=== PATIENT | male | born 1990 | race Caucasian/White ===

== ENCOUNTER 2019-07-01 17:50 | Inpatient (IN) ==
[2019-07-01 18:39] LABS: Appearance Urine Turbid (Clear); Bacteria Urine Automated Negative (Negative); Bilirubin Urine Negative (Negative); Blood Urine Negative (Negative); Color Urine Yellow; Glucose Urine UA Negative (Negative); Ketones Urine Negative (Negative); Leukocyte Esterase Urine Negative (Negative); Nitrite Urine Negative (Negative); Protein Urine Negative (Negative); RBC Urine Automated 0-4 /hpf (0-4); Specific Gravity Urine 1.013 (1.000-1.030); Urobilinogen Urine Negative (Negative); pH Urine 8.5 (4.5-7.5)
[2019-07-01 18:58] LABS: Hematocrit (blood only) 40.8 % (42-52); Hemoglobin 14.4 g/dL (14.0-18.0); Mean Corpuscular Hemoglobin 31.6 pg (25-34); Mean Corpuscular Hgb Conc 35.3 g/dL (32-36); Mean Corpuscular Volume 89.5 fL (80-100); Mean Platelet Volume 9.3 fL (7.4-10.4); Platelet Count 330 K/uL (130-400); RDW Coefficient of Variation 12.4 % (11.5-14.5); RDW Standard Deviation 39.7 fL (36.4-46.3); Red Blood Count 4.56 M/uL (4.7-6.1); White Blood Count 8.88 K/uL (4.8-10.8)
[2019-07-01 19:06] LABS: Amphetamines+Metham, Urine Neg (Neg); Barbiturates, Urine Neg (Neg); Benzodiazepine, Urine Neg (Neg); Cocaine, Urine Neg (Neg); MDMA (Ecstacy), Urine Neg (Neg); Methadone, Urine Neg (Neg); Opiate, Urine Neg (Neg); Phencyclidine, Urine Neg (Neg)
[2019-07-01 19:20] LABS: Alanine Aminotransferase 19 U/L (12-78); Albumin Level 4.3 gm/dl (3.4-5.0); Aspartate Aminotransferase 9 U/L (15-37); Basophils # (auto) 0.01 K/uL (0-0.2); Basophils % (auto) 0.1 %; Blood Urea Nitrogen 12 mg/dl (7-18); Calcium 9.9 mg/dl (8.5-10.1); Carbon Dioxide 25 mmol/L (21-32); Chloride 112 mmol/L (98-107); Eosinophils # (auto) 0.04 K/uL (0-0.5); Eosinophils % (auto) 0.5 %; Est GFR (African American) 133.3; Glucose 101 mg/dl (70-99); Immature Granulocytes # (auto) 0.01 K/uL (0.00-0.02); Immature Granulocytes % (auto) 0.1 %; Lymphocytes % (auto) 23.6 %; Monocytes # (auto) 0.68 K/uL (0.11-0.59); Monocytes % (auto) 7.7 %; Neutrophils # (auto) 6.04 K/uL (1.4-6.5); Potassium 3.5 mmol/L (3.5-5.1); Sodium 140 mmol/L (136-145)
[2019-07-01 19:30] LABS: Acetaminophen < 2 ug/ml (10-30); Salicylate < 1.7 mg/dl (2.8-20)
[2019-07-01 19:31] LABS: Albumin Globulin Ratio 1.2 (0.9-2); Alkaline Phosphatase 74 U/L (45-117); Bilirubin,Total 1.3 mg/dl (0.2-1); Globulin 3.7 gm/dl (2.5-4.0)
--- NOTE | 2019-07-01 21:23 | Emergency Department Note ---
Entered by Tanya Neri acting as a scribe for Home Galvez MD ED Provider Note Name: EDOUARD Gonzalez MURTIFF Age: 29 Arrives Via: Ambulance Informant: Patient, EMS, ED nurses, CC: Mental Health Evaluation HPI: 29M arrives for a mental health evaluation. The patient states that he has been experiencing worsening depression and SI (no plan) in the last few weeks. He states that his sister called [facility]" today who sent him to the ED. The patient explains that he currently has "a lot going on" and has been dealing with family issues. He is currently not taking any psychiatric medications (last time was 2 years ago). The patient is willing have placement in a mental health facility for treatment. The patient has a history of admission 7 years ago to [facility] for depression and admits that he has not had any suicide attempts for a "long time". He denies any recent suicide attempts including cutting and overdose. Of note, he does not see a psychiatrist or therapist regularly and he does not have a family history of depression. Additionally he states that he has not had any recent falls or injuries. However, he does admit that he has intermittent loss of appetite. He denies back pain and chest pain. The patient offers no additional concerns at this time. ROS: See above HPI for pertinent positives & negatives. A total of 10 systems reviewed and were otherwise negative. Past Medical History:Mood disorder, depression, tobacco abuse disorder, see additional history below. Past Surgical History:Cornea transplant, hip surgery. Family History:No pertinent family history. Social History:Former cigarette smoker, chews tobacco, no drugs, social ETOH Home Medications:Acetazolamide, latanoprost, Lotemax, timolol maleate. Allergies:Latex Vitals: * BP: 93/77 * Pulse: 102 * Resp: 19 * Temp: 36.6 C * O2 Sat: 98 * Delivery: Room Air Physical Exam: GENERAL: Patient has depressed affect and in no acute distress. EYES: No scleral icterus, unremarkable pupils. ENT: Mucous membranes moist, no nasal congestion. NECK: No masses appreciated, nomeningismus, trachea is midline. RESPIRATORY: No dyspnea. Clear to auscultation and equal bilaterally. No wheeze, no rhonchi. CARDIOVASCULAR: Regular rate and rhythm.No murmurs, rubs, gallops appreciated. GASTROINTESTINAL: Abdomen soft, non-tender, no peritonitis.Bowel sounds positi ve.No masses appreciated. BACK: No midline tenderness, no CVA tenderness EXTREMITIES: Normal motion all extremities, no cyanosis, no edema. NEUROLOGIC: Alert and oriented, no acute motor or sensory deficits, no focal weakness, cranial nerves grossly intact. SKIN: No rash, no jaundice, no diaphoresis. PSYCH: Admits SI, admits depression. ED Course: Prior Medical Record, Triage/Nursing Notes, Medications, Allergies reviewed by Me Vital Signs: reviewed and remarkable for mild tachy, resolved Labs:Reviewed and remarkable for no significant abnormalities Reassessments/Times: * 1755: Past medical records reviewed. The patient was evaluated in room A08 A complete history and physical exam was performed. * 2015: Mental health will evaluate the patient. Blood pressure:Normal.No Referral necessary Disposition:Hospitalization - [address] [place] [address] Differentials:Differential: Mood Disorder, Overdose, Infectious, Electrolyte Abnormality, Cardiac, Hepatic, Endocrine, Toxicologic, Neurologic, amongst other pathologies Entertained. Medical Decision Makin yr old male history of depression arrives with worsening depression and now suicidal ideation over the last few days and weeks. 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 Currently no plan for suicide but thinking about it and severely depressed, no outpatient help and he has history of admission for depression. Patent willing inpatient. Medically cleared. Admitted to [address] [place] [address] Impression: Depression with Suicidal Ideation The scribe's documentation has been prepared under my direction and personally reviewed by me in its entirety. I confirm that the note above accurately reflects all work, treatment, procedures, and medical decision making performed by me. Home Galvez MD Impression & Plan Depression with suicidal ideation Past Med/Surg History Medical History (Updated 07/02/19 @ 02:21 by Home Galvez MD) Glaucoma (Chronic) No acute medical problems Surgical History (Updated 07/01/19 @ 21:58 by Tanya Neri) History of hip surgery Transplanted cornea Social History (Updated 07/01/19 @ 21:57 by Tanya Neri) Preferred Language: Uzbek Communication Ability: Effective Electric Installer Required: No Beliefs That Will Affect Care: None marital status: Single current occupational status: unemployed Feels Safe at Home: Yes Smoking Status: Former smoker Tobacco Type: smokeless tobacco ; Hx Alcohol Use: Yes Alcohol Intake Frequency: Holidays/Special Occasions Alcohol Intake Frequency Comment: last use was a few days ago Hx Substance Use: No Results & Data Vital Signs Vital Signs - 24 hr 07/01/19 17:56 07/01/19 21:42 Temperature 36.6 C Temperature Source Oral Pulse Rate 102 H Pulse Rate [Finger] 91 H Pulse Rhythm Regular Pulse Strength Normal Respiratory Rate 19 18 Respiratory Effort / Characteristics Non-Labored Non-Labored Respiratory Depth Normal Normal Respiratory Pattern Regular Regular Blood Pressure 93/77 L Blood Pressure [Left Arm] 118/73 Blood Pressure Mean 82 Blood Pressure Mean [Left Arm] 88 Blood Pressure Position Sitting Blood Pressure Position [Left Arm] Sitting Pulse Oximetry 98 97 Oxygen Delivery Method Room Air Room Air Sepsis Recent Fever Within 48 Hours No Sepsis Action Taken by Nursing No Action Required Laboratory Data Result diagrams: 07/01/19 18:40 07/01/19 18:40 Lab Results 07/01/19 07/01/19 07/01/19 Range/Units 18:20 18:20 18:40 WBC 8.88 (4.8-10.8) K/uL RBC 4.56 L (4.7-6.1) M/uL Hgb 14.4 (14.0-18.0) g/dL Hct 40.8 L (42-52) % MCV 89.5 (80-100) fL MCH 31.6 (25-34) pg MCHC 35.3 (32-36) g/dL RDW Std Deviation 39.7 (36.4-46.3) fL RDW Coeff of Dlemer 12.4 (11.5-14.5) % Plt Count 330 (130-400) K/uL MPV 9.3 (7.4-10.4) fL Immature Gran % (Auto) 0.1 % Neut % (Auto) 68.0 % Lymph % (Auto) 23.6 % Daniels % (Auto) 7.7 % Eos % (Auto) 0.5 % Baso % (Auto) 0.1 % Immature Gran # (Auto) 0.01 (0.00-0.02) K/uL Neut # (Auto) 6.04 (1.4-6.5) K/uL Lymph # (Auto) 2.10 (1.2-3.4) K/uL [place] # (Auto) 0.68 H (0.11-0.59) K/uL Eos # (Auto) 0.04 (0-0.5) K/uL Baso # (Auto) 0.01 (0-0.2) K/uL Sodium (136-145) mmol/L Potassium (3.5-5.1) mmol/L Chloride (98-107) mmol/L Carbon Dioxide (21-32) mmol/L Anion Gap (3-11) BUN (7-18) mg/dl Creatinine (0.6-1.4) mg/dl Est Cr Clr Drug Dosing Est GFR ( Amer) Est GFR (Non-Af Amer) BUN/Creatinine Ratio (10-20) Glucose (70-99) mg/dl Calcium (8.5-10.1) mg/dl Total Bilirubin (0.2-1) mg/dl AST (15-37) U/L ALT (12-78) U/L Alkaline Phosphatase (45-117) U/L Total Protein (6.4-8.2) gm/dl Albumin (3.4-5.0) gm/dl Globulin (2.5-4.0) gm/dl Albumin/Globulin Ratio (0.9-2) TSH (0.300-4.500) uIu/ml Urine Color Yellow Urine Appearance Turbid A (Clear) Urine pH 8.5 H (4.5-7.5) Ur Specific [place] 1.013 (1.000-1.030) Urine Protein Negative (Negative) Urine Glucose (UA) Negative (Negative) Urine Ketones Negative (Negative) Urine Blood Negative (Negative) Urine Nitrite Negative (Negative) Urine Bilirubin Negative (Negative) Urine Urobilinogen Negative (Negative) Ur Leukocyte Esterase Negative (Negative) Urine WBC (Auto) 1-5 (0-5) /hpf Urine RBC (Auto) 0-4 (0-4) /hpf U Hyaline Cast (Auto) 1-5 (0-5) /lpf U Epithel Cells (Auto) 5-10 H (0-5) /lpf Urine Bacteria (Auto) Negative (Negative) Salicylates (2.8-20) mg/dl Urine Opiates Screen Neg (Neg) Ur Methadone, Qual Neg (Neg) Acetaminophen (10-30) ug/ml Urine Barbiturates Neg (Neg) Ur Phencyclidine (PCP) Neg (Neg) U Amphetamin/Meth Scrn Neg (Neg) MDMA (Ecstasy) Screen Neg (Neg) U Benzodiazepines Scrn Neg (Neg) Ur Cocaine Metabolite Neg (Neg) U Marijuana (THC) Screen Neg (Neg) Ethyl Alcohol mg/dL (0-3) mg/dl 07/01/19 07/01/19 07/01/19 Range/Units 18:40 18:40 18:40 WBC (4.8-10.8) K/uL RBC (4.7-6.1) M/uL Hgb (14.0-18.0) g/dL Hct (42-52) % MCV (80-100) fL MCH (25-34) pg MCHC (32-36) g/dL RDW Std Deviation (36.4-46.3) fL RDW Coeff of [place] (11.5-14.5) % Plt Count (130-400) K/uL MPV (7.4-10.4) fL Immature Gran % (Auto) % Neut % (Auto) % Lymph % (Auto) % Daniels % (Auto) % Eos % (Auto) % Baso % (Auto) % Immature Gran # (Auto) (0.00-0.02) K/uL Neut # (Auto) (1.4-6.5) K/uL Lymph # (Auto) (1.2-3.4) K/uL Daniels # (Auto) (0.11-0.59) K/uL Eos # (Auto) (0-0.5) K/uL Baso # (Auto) (0-0.2) K/uL Sodium 140 (136-145) mmol/L Potassium 3.5 (3.5-5.1) mmol/L Chloride 112 H (98-107) mmol/L Carbon Dioxide 25 (21-32) mmol/L Anion Gap 3.0 (3-11) BUN 12 (7-18) mg/dl Creatinine 0.90 (0.6-1.4) mg/dl Est Cr Clr Drug Dosing Not Reportable Est GFR ( Amer) 133.3 Est GFR (Non-Af Amer) 115.0 BUN/Creatinine Ratio 13.0 (10-20) Glucose 101 H (70-99) mg/dl Calcium 9.9 (8.5-10.1) mg/dl Total Bilirubin 1.3 H (0.2-1) mg/dl AST 9 L (15-37) U/L ALT 19 (12-78) U/L Alkaline Phosphatase 74 (45-117) U/L Total Protein 8.0 (6.4-8.2) gm/dl Albumin 4.3 (3.4-5.0) gm/dl Globulin 3.7 (2.5-4.0) gm/dl Albumin/Globulin Ratio 1.2 (0.9-2) TSH 1.240 (0.300-4.500) uIu/ml Urine Color Urine Appearance (Clear) Urine pH (4.5-7.5) Ur Specific [place] (1.000-1.030) Urine Protein (Negative) Urine Glucose (UA) (Negative) Urine Ketones (Negative) Urine Blood (Negative) Urine Nitrite (Negative) Urine Bilirubin (Negative) Urine Urobilinogen (Negative) Ur Leukocyte Esterase (Negative) Urine WBC (Auto) (0-5) /hpf Urine RBC (Auto) (0-4) /hpf U Hyaline Cast (Auto) (0-5) /lpf U Epithel Cells (Auto) (0-5) /lpf Urine Bacteria (Auto) (Negative) Salicylates < 1.7 L (2.8-20) mg/dl Urine Opiates Screen (Neg) Ur Methadone, Qual (Neg) Acetaminophen < 2 L (10-30) ug/ml Urine Barbiturates (Neg) Ur Phencyclidine (PCP) (Neg) U Amphetamin/Meth Scrn (Neg) MDMA (Ecstasy) Screen (Neg) U Benzodiazepines Scrn (Neg) Ur Cocaine Metabolite (Neg) U Marijuana (THC) Screen (Neg) Ethyl Alcohol mg/dL < 3.0 (0-3) mg/dl Discharge Plan Visit Data *Final* Discharge Date/Time: 07/01/19 22:24 Chief Complaint: Mental Health Evaluation ED Provider: Home Galvez Discharge Problem: Depression with suicidal ideation Patient Disposition: Still a Patient Discharge Instructions Interventions: ED Discharge Assessment Last Done: 07/01/19 22:24 The scribe's documentation has been prepared under my direction and personally reviewed by me in its entirety. I confirm that the note above accurately reflects all work, treatment, procedures, and medical decision making performed by me.
[2019-07-01] MEDS ORDERED: SODIUM CHLORIDE 0.65% NA SOLN 45 ML (OCEAN) PRN (23:06)
[2019-07-01] MEDS ORDERED: ALUMINUM/MAGNESIUM SUSP 30 ML UDC PO PRN (23:06)
[2019-07-01] MEDS ORDERED: MAGNESIUM HYDROXIDE SUSP 30 ML UDC PO PRN (23:06)
[2019-07-01] MEDS ORDERED: ACETAMINOPHEN 325 MG TAB PO PRN (23:06)
[2019-07-01] MEDS ORDERED: BISMUTH SUBSALICYLATE PER ML OMNICELL CHARGE PO PRN (23:06)
[2019-07-01] MEDS: LATANOPROST 0.005% OP SOLN 2.5 ML BTL OP SCH (23:45)
[2019-07-01] MEDS: TIMOLOL MALEATE 0.25% OP SOLN 5 ML BTL OP SCH (23:45)
[2019-07-01] MEDS: LOTEMAX OPL SCH (23:45)
[2019-07-02] MEDS: TIMOLOL MALEATE 0.25% OP SOLN 5 ML BTL OP SCH ×2 (07:41→21:59)
[2019-07-02] MEDS: acetaZOLAMIDE 250 MG TAB PO SCH (08:41)
[2019-07-02] MEDS: NICOTINE 14 MG/24 HR PATCH TD SCH (08:44)
[2019-07-02] MEDS ORDERED: acetaZOLAMIDE 500 MG CAPCR PO SCH (09:00)
[2019-07-02] MEDS: NICOTINE POLACRILEX 2 MG GUM MT PRN ×3 (09:14→19:25)
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
[2019-07-02] MEDS: ARIPiprazole 5 MG TAB PO SCH (11:57)
[2019-07-02] MEDS: LOTEMAX OPL SCH (21:59)
[2019-07-02] MEDS: LATANOPROST 0.005% OP SOLN 2.5 ML BTL OP SCH (22:00)
[2019-07-03] MEDS: acetaZOLAMIDE 250 MG TAB PO SCH (08:54)
[2019-07-03] MEDS: ARIPiprazole 5 MG TAB PO SCH (08:54)
[2019-07-03] MEDS: TIMOLOL MALEATE 0.25% OP SOLN 5 ML BTL OP SCH ×2 (08:54→22:02)
[2019-07-03] MEDS: NICOTINE 14 MG/24 HR PATCH TD SCH (08:58)
[2019-07-03] MEDS: NICOTINE POLACRILEX 2 MG GUM MT PRN ×3 (12:15→19:18)
[2019-07-03] MEDS ORDERED: ARIPiprazole 5 MG TAB PO ONE (12:27)
--- NOTE | 2019-07-03 14:03 | Psychiatric Progress Note ---
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 He does have a history of suicide attempt and, particularly in the setting of recent losses and psychosocial stress, is felt to be at increased risk of self-harm without the support of inpatient psychiatric hospitalization at present. (1) Depression with suicidal ideation: 07/02/2019 -Patient admitted on a voluntary status to the behavioral health unit. Will be maintained on regular safety checks and encouraged to participate in therapeutic milieu as appropriate -Will restart Abilify at 2.5 mg p.o. daily which has previously been helpful and well-tolerated. Common risks and benefits reviewed with patient including metabolic and motor risks which specifically included discussion about potential tardive dyskinesia as a long-term consequence of this class of medication and he verbalized understanding and consented to the treatment -Patient will require baseline fasting labs prior to discharge for monitoring on atypical antipsychotic -We will facilitate outpatient follow-up prior to discharge to include psychiatric medication management and psychotherapy 07/03 -No interval mood improvement yet apparent -Increase Abilify to 5 mg daily -We will order fasting labs for Thursday morning for baseline on atypical antipsychotic -He was encouraged to be open in his communication with sister at family meeting today (2) Glaucoma: 07/02/2019 -He will continue on his home regimen for his glaucoma Inventory Assets Strengths: Help seeking Needs: Provision of safety Risk Factors Assessment 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)) Stable Relationships: No Interval History Chief Complaint " I got angry". Review of Systems Notes Denies restlessness Sleep Information Total Hours of Sleep: 5.25 Meal Information Percent Meal Consumed - Breakfast: 50 Percent Meal Consumed - Lunch: 100 Percent Meal Consumed - Dinner: 100 Subjective Subjective Patient was seen & assessed and interval progress reviewed with treatment team. Staff describe some rather juvenile behaviors overnight. Seemingly enjoying attention from another inpatient precipitating some mildly confrontational behavior with staff such as sitting by the door to the unit and refusing to move, checking doors on the exterior of the unit, and punching a door. When queried about nidus for anger he reports that he seems mostly angry at his sister with whom he has been living and tells me that his girlfriend has indicated to him that his sister will probably try to steal his disability check and kick him out of the house. He denies evidence of this presently. He is scheduled for a family meeting with his sister today. Complains of poor sleep overnight but did not request or receive hydroxyzine prn and was made aware that this is available to him if needed. He denies any problems or side effects in restarting the Abilify so far. He denies any improvement in hopelessness. Physical Exam Psychiatric More drowsy and guarded this morning Apperance: + disheveled Eye Contact: + poor eye contact Motor Behavior: + psychomotor retardation Speech is clear but less spontaneous Affect: + depressed affect Mood: + depressed mood and + angry mood Thought Process: + perseveration and + concrete thought process Thought Content: + hopelessness Suicidal Thoughts: denies suicidal plan; + reports suicidal thoughts Homicidal Thoughts: denies homicidal thoughts Hallucinations: no auditory hallucinations and no visual hallucinations Estimated Intelligence: + below average estimated intelligence Insight: + limited insight Judgement: + limited judgement Vital Signs (Past 24 Hours) Last Vital Signs Temp 36.9 C 07/03/19 07:04 Pulse 80 07/03/19 07:05 Resp 18 07/03/19 07:04 BP 102/61 07/03/19 07:05 Pulse Ox 98 07/01/19 22:24 Results & Data Current Inpatient Medications Current Inpatient Medications: Current Inpatient Medications Acetaminophen (Tylenol) 650 mg PO Q4H PRN PRN Reason: Headache or Minor Fever Stop: 07/31/19 23:05 Acetazolamide (Diamox) 250 mg PO DAILY [facility] Stop: 08/01/19 08:59 Last Admin: 07/03/19 08:54 Dose: 250 mg Documented by: Al Hydrox/Mg Hydrox/Simethicone (Maalox) 30 ml PO Q4H PRN PRN Reason: GI Upset Stop: 07/31/19 23:05 Aripiprazole (Abilify) 5 mg PO QAM [facility] Stop: 08/03/19 08:59 Bismuth Subsalicylate (Kaopectate) 15 ml PO PRN PRN PRN Reason: Loose Stool Stop: 07/31/19 23:05 Hydroxyzine HCl (Vistaril) 50 mg PO HSZ PRN PRN Reason: Insomnia Stop: 07/31/19 23:05 Hydroxyzine HCl (Vistaril) 25 mg PO Q4H PRN PRN Reason: Anxiety Stop: 07/31/19 23:05 Latanoprost (Xalatan Oph) 1 drops OP HS [facility] Stop: 08/01/19 21:59 Last Admin: 07/02/19 22:00 Dose: 1 drops Documented by: Magnesium Hydroxide (Milk Of Magnesia) 30 ml PO DAILY PRN PRN Reason: Constipation Stop: 07/31/19 23:05 Miscellaneous (Remove Nicoderm Patch) 1 ea N/A DAILY@0859 [facility] Stop: 08/01/19 08:58 Last Admin: 07/03/19 08:58 Dose: Not Given Documented by: Nicotine (Nicoderm Cq) 14 mg TD QAM [facility] Stop: 08/01/19 08:59 Last Admin: 07/03/19 08:58 Dose: Not Given Documented by: Nicotine Polacrilex (Nicorette 2mg) 1 piece MT PRN PRN PRN Reason: Nicotine Withdrawal Stop: 07/31/19 23:05 Last Admin: 07/03/19 12:15 Dose: 1 piece Documented by: Lotemax~Non- Formulary Patient's Own Med 1 ea OPL HS [facility] Stop: 08/01/19 21:59 Last Admin: 07/02/19 21:59 Dose: 1 drops Documented by: Sodium Chloride ([place] Nasal) 1 - 2 sprays NA PRN PRN PRN Reason: Nasal Dryness/Congestion Stop: 07/31/19 23:05 Timolol Maleate (Timoptic 0.25% Oph) 1 drops OP BID [facility] Stop: 08/01/19 08:59 Last Admin: 07/03/19 08:54 Dose: 1 drops Documented by: Mental Health & Subst Abuse Tx Therapist Name of Therapist: None Finish Inspector Name of Finish Inspector: None Post Discharge Appointments Contact Information Discharge Discharge Address: [address] [place] [id number]
[2019-07-03] MEDS: LOTEMAX OPL SCH (22:02)
[2019-07-03] MEDS: LATANOPROST 0.005% OP SOLN 2.5 ML BTL OP SCH (22:03)
[2019-07-04] MEDS: NICOTINE 14 MG/24 HR PATCH TD SCH (08:02)
[2019-07-04] MEDS: TIMOLOL MALEATE 0.25% OP SOLN 5 ML BTL OP SCH (08:04)
[2019-07-04 08:22] LABS: Glucose Fasting 97 mg/dl (70-99)
[2019-07-04 08:28] LABS: Chol HDL Ratio 3; Cholesterol 133 mg/dl (0-200); HDL Cholesterol 48 mg/dl; LDL Cholesterol Calculated 73 mg/dl; Triglycerides 59 mg/dl (0-150); VLDL Cholesterol 12 mg/dl
[2019-07-04] MEDS: acetaZOLAMIDE 250 MG TAB PO SCH (08:37)
[2019-07-04] MEDS ORDERED: ARIPiprazole 5 MG TAB PO SCH (09:00)
--- NOTE | 2019-07-04 11:55 | Discharge Summary ---
Date of Service July 04, 2019 History of Present Illness Patient admitted on a voluntary status through the ER last evening. He presented complaining of worsening depression and suicidal ideation without a specific plan for the past few weeks and felt unable to contract for safety outside of the hospital. His sister called the crisis line who sent him to the ER. He described multiple family stressors. He noted absence of active medication management or psychotherapy services. He was medically cleared for admission to the behavioral health unit. Admission labs unremarkable. Tox screen negative. On interview patient describes recent losses where his uncle on 06/30/2019 and his grandmother last March and he was close to both of these individuals. He feels that his father does not care if he lives or dies. He describes feeling lonely with his sadness and that he burdens people when he tries to talk to them. Reports significantly declining mood for the past several weeks with thoughts of being better off but has not formulated a specific plan for self-harm. He endorses crying spells, variable appetite and sleep patterns, variable irritability, but denies self injury or other particular impulsive behaviors. He describes some mild anxiety but denies symptoms that would be consistent with longstanding anxiety disorder, panic, or PTSD. Reviewed prior diagnosis of bipolar disorder however he denies recollection of discrete hypomanic or manic episodes and denies any recent symptoms that would suggest mixed or manic state. He denies hallucinations. He recalls a positive response to Abilify for depression in the past and believes it was well tolerated. He last took this in 2016 reports he stopped taking it because he was feeling better. His recall antidepressants were not of much benefit to him in the more distant past. Physical Exam Psychiatric Orientation: alert, oriented x 3 and cooperative Apperance: appropriately dressed, appropriately groomed (long aranda, but well- groomed) and appeared stated age Eye Contact: good eye contact Motor Behavior: steady gait and station and no abnormal motor movements Speech: normal rate/rhythm/volume of speech (mostly nonspontaneous, brief responses - but polite tone) Affect: + blunted affect Mood: + anxious mood ("a bit nervious, worried" - anticipatory anxious related to discharge) Thought Process: goal directed thought process, clear/coherent thought process and + concrete thought process Thought Content: reality based without delusions; no hopelessness and no worthlessness Suicidal Thoughts: denies suicidal thoughts, denies suicidal plan and denies suicidal intent Homicidal Thoughts: denies homicidal thoughts Hallucinations: no auditory hallucinations and no visual hallucinations Cognition: attention grossly intact and language grossly intact Estimated Intelligence: + below average estimated intelligence Insight: + fair insight Judgement: + fair judgement Vital Signs (Past 24 Hours) Last Vital Signs Temp 36.7 C 07/04/19 06:45 Pulse 91 H 07/04/19 06:45 Resp 16 07/04/19 06:45 BP 108/72 07/04/19 06:45 Pulse Ox 98 07/01/19 22:24 Principal Diagnosis - Major depressive disorder, recurrent, severe, without psychotic features - Glaucoma Psychiatric Data 29-year-old male admitted voluntarily for inpatient psychiatric hospitalization on 07/01/2019. 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 Patient presented with worsening depression over the past several weeks, and was verbalizing suicidal ideation without a specific plan. Patient felt he was unable to contract for safety outside of the inpatient hospital setting due to persistent family stressors and limited professional outpatient support. Patient also admitted to recent significant losses, including his grandmother in March 2019 and an uncle on 06/30/2019. Patient reported a previous positive response to aripiprazole for treatment of depressive symptoms. He also recalled that antidepressant medication trials had not generally been beneficial for him. During his hospitalization, patient was resumed on aripiprazole which was titrated to a dose of 5 mg daily. Patient participated in group and recreational programming over the course of his admission. He also involved a cousin, with whom he reports a close relationship, and a family meeting to discuss discharge and safety planning. Patient admitted a large priority for inpatient admission was to obtain professional outpatient psychiatric supports. [facility], and also was set up with therapy and medication management appointments. At time of discharge consideration, patient is denying continued suicidal ideation and reports feeling comfortable with current discharge plan. Aripiprazole was called to his pharmacy of choice, and a co-pay of $0 was reported. Patient did receive fasting glucose and lipid panel, all values within normal limits. Based on review of patient's case and their current presentation, risk of harm to self or others is no longer perceived to be acute. Management of symptoms on an outpatient basis seems the most appropriate and least restrictive setting. Pt seems appropriate for discharge with recommendation for consistent follow-up with outpatient psychiat patricia prescriber, therapist, and embedded case manager. Pt verbalized understanding of discharge plan reviewed and is agreeable with plan to be discharged home today. Day of Discharge Assessment Patient's case was reviewed and discussed during treatment team. Staff reports the patient continues to verbalize an elevated mood compared to admission. He is continued to deny suicidal ideation. Patient continues to report requests for therapy and medication management appointments prior to discharge. It is reported that patient participated in a family meeting with his cousin over the weekend. Patient was seen today to assess readiness for discharge. Patient does feel as though he was able to demonstrate ability to "open up more" about his thoughts and emotions during this admission. Patient states he found it helpful being able to speak openly with his cousin during a family meeting, and has found one-to-one meetings with counselors beneficial as well. Patient continues to verbalize desire for outpatient medication management and therapy prior to discharge. He does denies suicidal ideation, or significant mood related concerns. Patient does admit that he is "a little nervous" about the idea of discharge, but is optimistic that increased outpatient support will be beneficial. Fasting lab results were reviewed, all values within normal limits. At this time, patient is reporting desire for discharge today once aftercare arrangements have been made. Patient was able to verbalize aspects of a safety plan to this provider, and continued to make statements indicating he is future oriented. He denies additional needs or concerns, or unmet goals of treatment during this admission. ROS: Constitutional: denied Cardiovascular: denied Respiratory: denied Gastrointestinal: denied Neurological: denied Psychiatric: denies symptoms other than stated above Total of at least 10 systems reviewed, pertinent positives as above and in HPI. Transition of Care Transition Of Care Record: was reviewed with the patient Advance Directives Advance Directives Information Provided: Yes Advance Directives: No Mental Health Advance Directive: No Advance Directives on File: No Living Will: No Power of Anvilsmith: No Advance Directives Reason:: Declines as Mental Health Visit. Risk Factors Assessment Presenting risk factors reviewed on discharge. Precipitating stressors mitigated by: admission for inpatient psychiatric observation and treatment, initiation of medications to target presenting symptoms, attendance of therapeutic treatment groups, development of healthy and effective coping strategies, involvement of outpatient supports, completion of a safety plan, confirmation of guns and weapons being secured, discussion regarding substance abuse and effects on mental health diagnoses, treatment of medical conditions and education on diagnoses. Pt has demonstrated improvement in condition with regard to improvement in mood, resolution of SI, reinitiation of psychotropic medications, and involvement of family in discharge and safety planning. At this time, patient is requesting discharge and is no longer considered to be at acute risk of harm to himself or others. Pt will be discharged with recommendation for ongoing outpatient psychiatric treatment. 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)) Stable Relationships: No Tobacco Cessation at Discharge Tobacco Cessation Medication Prescribed at Discharge: Offered & Pt Refused Total Time Total Time Spent: Greater Than 30 Minutes Total Time Includes: Examination of the patient, Discharge Planning, Medication Reconciliation and Communication with other providers Discharge Data Lab Results 07/01/19 07/01/19 07/01/19 18:20 18:20 18:40 WBC 8.88 RBC 4.56 L Hgb 14.4 Hct 40.8 L MCV 89.5 MCH 31.6 MCHC 35.3 RDW Std Deviation 39.7 RDW Coeff of Delmer 12.4 Plt Count 330 MPV 9.3 Immature Gran % (Auto) 0.1 Neut % (Auto) 68.0 Lymph % (Auto) 23.6 Sharp % (Auto) 7.7 Eos % (Auto) 0.5 Baso % (Auto) 0.1 Immature Gran # (Auto) 0.01 Neut # (Auto) 6.04 Lymph # (Auto) 2.10 Sharp # (Auto) 0.68 H Eos # (Auto) 0.04 Baso # (Auto) 0.01 Sodium Potassium Chloride Carbon Dioxide Anion Gap BUN Creatinine Est Cr Clr Drug Dosing Est GFR ( Amer) Est GFR (Non-Af Amer) BUN/Creatinine Ratio Glucose Fasting Glucose Calcium Total Bilirubin AST ALT Alkaline Phosphatase Total Protein Albumin Globulin Albumin/Globulin Ratio Triglycerides Cholesterol LDL Cholesterol, Calc VLDL Cholesterol, Calc HDL Cholesterol Cholesterol/HDL Ratio TSH Urine Color Yellow Urine Appearance Turbid A Urine pH 8.5 H Ur Specific Council 1.013 Urine Protein Negative Urine Glucose (UA) Negative Urine Ketones Negative Urine Blood Negative Urine Nitrite Negative Urine Bilirubin Negative Urine Urobilinogen Negative Ur Leukocyte Esterase Negative Urine WBC (Auto) 1-5 Urine RBC (Auto) 0-4 U Hyaline Cast (Auto) 1-5 U Epithel Cells (Auto) 5-10 H Urine Bacteria (Auto) Negative Salicylates Urine Opiates Screen Neg Ur Methadone, Qual Neg Acetaminophen Urine Barbiturates Neg Ur Phencyclidine (PCP) Neg U Amphetamin/Meth Scrn Neg MDMA (Ecstasy) Screen Neg U Benzodiazepines Scrn Neg Ur Cocaine Metabolite Neg U Marijuana (THC) Screen Neg Ethyl Alcohol mg/dL 07/01/19 07/01/19 07/01/19 18:40 18:40 18:40 WBC RBC Hgb Hct MCV MCH MCHC RDW Std Deviation RDW Coeff of Delmer Plt Count MPV Immature Gran % (Auto) Neut % (Auto) Lymph % (Auto) Sharp % (Auto) Eos % (Auto) Baso % (Auto) Immature Gran # (Auto) Neut # (Auto) Lymph # (Auto) Sharp # (Auto) Eos # (Auto) Baso # (Auto) Sodium 140 Potassium 3.5 Chloride 112 H Carbon Dioxide 25 Anion Gap 3.0 BUN 12 Creatinine 0.90 Est Cr Clr Drug Dosing Not Reportable Est GFR ( Amer) 133.3 Est GFR (Non-Af Amer) 115.0 BUN/Creatinine Ratio 13.0 Glucose 101 H Fasting Glucose Calcium 9.9 Total Bilirubin 1.3 H AST 9 L ALT 19 Alkaline Phosphatase 74 Total Protein 8.0 Albumin 4.3 Globulin 3.7 Albumin/Globulin Ratio 1.2 Triglycerides Cholesterol LDL Cholesterol, Calc VLDL Cholesterol, Calc HDL Cholesterol Cholesterol/HDL Ratio TSH 1.240 Urine Color Urine Appearance Urine pH Ur Specific Council Urine Protein Urine Glucose (UA) Urine Ketones Urine Blood Urine Nitrite Urine Bilirubin Urine Urobilinogen Ur Leukocyte Esterase Urine WBC (Auto) Urine RBC (Auto) U Hyaline Cast (Auto) U Epithel Cells (Auto) Urine Bacteria (Auto) Salicylates < 1.7 L Urine Opiates Screen Ur Methadone, Qual Acetaminophen < 2 L Urine Barbiturates Ur Phencyclidine (PCP) U Amphetamin/Meth Scrn MDMA (Ecstasy) Screen U Benzodiazepines Scrn Ur Cocaine Metabolite U Marijuana (THC) Screen Ethyl Alcohol mg/dL < 3.0 07/04/19 07:51 WBC RBC Hgb Hct MCV MCH MCHC RDW Std Deviation RDW Coeff of Delmer Plt Count MPV Immature Gran % (Auto) Neut % (Auto) Lymph % (Auto) Sharp % (Auto) Eos % (Auto) Baso % (Auto) Immature Gran # (Auto) Neut # (Auto) Lymph # (Auto) Sharp # (Auto) Eos # (Auto) Baso # (Auto) Sodium Potassium Chloride Carbon Dioxide Anion Gap BUN Creatinine Est Cr Clr Drug Dosing Est GFR ( Amer) Est GFR (Non-Af Amer) BUN/Creatinine Ratio Glucose Fasting Glucose 97 Calcium Total Bilirubin AST ALT Alkaline Phosphatase Total Protein Albumin Globulin Albumin/Globulin Ratio Triglycerides 59 Cholesterol 133 LDL Cholesterol, Calc 73 VLDL Cholesterol, Calc 12 HDL Cholesterol 48 Cholesterol/HDL Ratio 3 TSH Urine Color Urine Appearance Urine pH Ur Specific Council Urine Protein Urine Glucose (UA) Urine Ketones Urine Blood Urine Nitrite Urine Bilirubin Urine Urobilinogen Ur Leukocyte Esterase Urine WBC (Auto) Urine RBC (Auto) U Hyaline Cast (Auto) U Epithel Cells (Auto) Urine Bacteria (Auto) Salicylates Urine Opiates Screen Ur Methadone, Qual Acetaminophen Urine Barbiturates Ur Phencyclidine (PCP) U Amphetamin/Meth Scrn MDMA (Ecstasy) Screen U Benzodiazepines Scrn Ur Cocaine Metabolite U Marijuana (THC) Screen Ethyl Alcohol mg/dL Hospital Course (1) Depression with suicidal ideation: 07/02/2019 -Patient admitted on a voluntary status to the behavioral health unit. Will be maintained on regular safety checks and encouraged to participate in therapeutic milieu as appropriate -Will restart Abilify at 2.5 mg p.o. daily which has previously been helpful and well-tolerated. Common risks and benefits reviewed with patient including metabolic and motor risks which specifically included discussion about potential tardive dyskinesia as a long-term consequence of this class of medication and he verbalized understanding and consented to the treatment -Patient will require baseline fasting labs prior to discharge for monitoring on atypical antipsychotic -We will facilitate outpatient follow-up prior to discharge to include psychiatric medication management and psychotherapy 07/03 -No interval mood improvement yet apparent -Increase Abilify to 5 mg daily -We will order fasting labs for Thursday morning for baseline on atypical antipsychotic -He was encouraged to be open in his communication with sister at family meeting today (2) Glaucoma: 07/02/2019 -He will continue on his home regimen for his glaucoma Mental Health & Subst Abuse Tx Psychiatrist Name of Psychiatrist: Carmen Canales @ [facility] Date of Appointment with Psychiatrist: 07/28/19 Time of Appointment with Psychiatrist: 8:20 AM Psychiatric Appointment Comment: [address] , [place] [address] Psychiatrist Release of Information: Obtained, Reviewed and Signed Therapist Name of Therapist: Kristina @ [facility] Date of Therapist Appointment: 07/11/19 Time of Therapist Appointment: 1:30PM Therapy Appointment Comment: [address] [facility], [place] [address] Therapist Release of Information: Obtained, Reviewed and Signed Top Distribution Executive Name of Top Distribution Executive: Yessenia Lazcano Phone Number for Top Distribution Executive: [phone] Date of Appointment with Top Distribution Executive: 07/07/19 Time of Appointment with Top Distribution Executive: 2:00PM. Transportation picking up at 12:[address] [facility]. Be ready. Case Management Appointment Comment: [address] [facility], [address], [place] [address]. Top Distribution Executive Release of Information: Obtained, Reviewed and Signed Post Discharge Appointments Smoking Cessation Counseling Tobacco Cessation Medication Prescribed at Discharge: Offered & Pt Refused Other #1: Name of Aftercare Appointment: [facility] Office Phone Number of Aftercare Appointment: Time of Aftercare Appointment: please call as soon as possible to change your medical assistance Aftercare Appointment Comment: [id number] [facility] #2: Name of Aftercare Appointment: [facility] Office Phone Number of Aftercare Appointment: Aftercare Appointment Comment: [address] [place] [address] Contact Information Discharge Discharge [address]: [address] [place] [id number] Discharge Plan Discharge Items Patient Disposition: Home - Self-Care Reason For Visit: MDD, RECURRENT SEVERE Discharge Diagnosis: - Depression Condition on Discharge: Fair Activity: Resume your previous activity Non-emergency contact: Primary Care Provider, Psychiatrist, Therapist and Security Alarm Installer Call non-emergency contact if: you have any medication questions and your symptoms worsen Follow-up/Referrals: PCP,NO [Primary Care Provider] - Diet: Regular Addtl Attending Provider Instructions: SPECIAL CARE INSTRUCTIONS: 1. Follow through with your scheduled aftercare appointments. If unable to keep an appointment, please call to reschedule. 2. Take your medication only as prescribed. Medication should not be changed or stopped without the approval of your doctor. In the event of worsening symptoms or concerns about side effects, contact your doctor immediately. 3. Utilize new healthy coping skills, anger management skills, and stress management skills learned during your hospitalization. Journal feelings and process them with a support person. Identify stressors or situations that may result in relapse, deterioration or inappropriate behaviors and develop a plan to deal with those issues. 4. If your coping skills are ineffective and you are in crisis, contact your outpatient providers for direction. If unable to reach your providers, please call the CAN HELP LINE AT or go to the closest Emergency Room. 5. Avoid alcohol and un-prescribed drugs. 6. You have been provided with the Mental Health Advance Directives Pamphlet for your review. AFTERCARE APPOINTMENTS: * Please call your insurance company prior to your scheduled appointment to confirm your aftercare providers are covered. Take your insurance information to your appointments. WHO TO CALL AND WHEN: Medical Emergencies: For questions or emergencies related to your hospital stay, please contact the Inpatient Behavioral Health Unit at [phone]. A registered pharmacy technician is on-call 26/01 [facility] At any time you feel your situation is an emergency, you may also call 911 immediately. Your Discharge Instructions noted above were prepared by provider Gretchen Herring PA-C. Pending Studies at Discharge: No Stand-Alone Forms: [facility], Smoking Cessation, Suicide Prevention Resources Medications and DC Order Prescriptions: New aripiprazole [Abilify] 5 mg Tablet 5 mg PO QAM 30 Days Qty: 30 RF: 0 Continued latanoprost 0.005 % drops 1 drp OPB HS RF: 0 acetazolamide 250 mg tablet 250 mg PO QAM RF: 0 timolol maleate 0.5 % drops 1 drp OPB BID RF: 0 Lotemax 0.5 % drops,gel 1 drp OPL QPM RF: 0 Discharge Orders: Discharge Order (Routine); Ordered 07/04/19 Ordered By: Gretchen Herring Admission Data Admit Date/Time: 07/01/19 22:03 Attending Provider: Jem Bo Admit Provider: Jem Bo Primary Care Provider: PCP,NO Other Interventions: Discharge Summary Assessment (RN) Last Done: 07/04/19 12:13 PSY Interdisciplinary Discharge Planning Last Done: 07/04/19 12:15 Coding Level of Care Code 89260 D/C day mgmt > 30 min Diagnoses Depression with suicidal ideation F32.9; R45.851 Glaucoma H40.9
== END 2019-07-04 13:10 | disposition home or self-care (01) | DRG 885 ==
LOC: ED 17:50 → 3S 22:03

== ENCOUNTER 2021-03-07 10:22 | Inpatient (IN) ==
[2021-03-07 11:02] LABS: Basophils # (auto) 0.01 K/uL (0-0.2); Basophils % (auto) 0.1 %; Eosinophils # (auto) 0.03 K/uL (0-0.5); Eosinophils % (auto) 0.4 %; Hematocrit (blood only) 42.3 % (42-52); Hemoglobin 14.6 g/dL (14.0-18.0); Immature Granulocytes # (auto) 0.01 K/uL (0.00-0.02); Immature Granulocytes % (auto) 0.1 %; Lymphocytes # (auto) 1.45 K/uL (1.2-3.4); Lymphocytes % (auto) 20.8 %; Mean Corpuscular Hemoglobin 31.7 pg (25-34); Mean Corpuscular Hgb Conc 34.5 g/dL (32-36); Mean Platelet Volume 9.5 fL (7.4-10.4); Monocytes # (auto) 0.45 K/uL (0.11-0.59); Monocytes % (auto) 6.5 %; Neutrophils # (auto) 5.02 K/uL (1.4-6.5); Neutrophils % (auto) 72.1 %; Platelet Count 248 K/uL (130-400); RDW Coefficient of Variation 12.8 % (11.5-14.5); RDW Standard Deviation 43.1 fL (36.4-46.3); White Blood Count 6.97 K/uL (4.8-10.8)
[2021-03-07 11:02] LABS: Appearance Urine Turbid (Clear); Bacteria Urine Automated Negative (Negative); Bilirubin Urine Negative (Negative); Blood Urine Negative (Negative); Color Urine Yellow; Glucose Urine UA Negative (Negative); Ketones Urine Trace (Negative); Leukocyte Esterase Urine Negative (Negative); Nitrite Urine Negative (Negative); Protein Urine Negative (Negative); RBC Urine Automated 0-4 /hpf (0-4); Specific Gravity Urine 1.017 (1.000-1.030); Urobilinogen Urine Positive (Negative)
[2021-03-07 11:24] LABS: BUN Creatinine Ratio 10.8 (10-20); Calcium 8.9 mg/dl (8.5-10.1); Creatinine Clr Calc Pharmacy 135.7 ml/min; Est GFR (African American) 133.6 ml/min; Est GFR (Non-African American) 115.3 ml/min; Potassium 3.7 mmol/L (3.5-5.1)
[2021-03-07] MEDS ORDERED: LORazepam 1 MG TAB SL STA (11:30)
[2021-03-07 11:33] LABS: Amphetamines+Metham, Urine Neg (Neg); Barbiturates, Urine Neg (Neg); Benzodiazepine, Urine Neg (Neg); Cocaine, Urine Neg (Neg); MDMA (Ecstacy), Urine Neg (Neg); Methadone, Urine Neg (Neg); Opiate, Urine Neg (Neg); Phencyclidine, Urine Neg (Neg)
[2021-03-07 11:34] LABS: Albumin Globulin Ratio 1.3 (0.9-2); Bilirubin,Total 1.5 mg/dl (0.2-1); Globulin 3.2 gm/dl (2.5-4.0); Thyroid Stimulating Hormone 0.989 uIu/ml (0.300-4.500); Total Protein 7.2 gm/dl (6.4-8.2)
[2021-03-07 11:38] LABS: Acetaminophen < 2 ug/ml (10-30); Salicylate < 1.7 mg/dl (2.8-20)
--- NOTE | 2021-03-07 12:53 | Emergency Department Note ---
History of Present Illness General Chief complaint: Mental Health Evaluation Stated complaint: FEELING SUICIDAL Source: patient and RN notes reviewed Mode of arrival: ambulatory Limitations: no limitations History of Present Illness Provider complaint: Mental health evaluation This patient is a 30-year-old male who presents emergency department with suicidal thoughts and depression after finding out his fiance has been cheating on him. Patient states a friend of his told him yesterday about the situation. He "looked on Facebook" and found pictures of his fiance and the other man. He states his fiance denies cheating however he does not believe her. He has been having suicidal thoughts since this time. He does have a remote history of suicide attempt and to stay on 3 S. He feels he needs to be readmitted. He denies having a plan to harm himself at this time. The patient is crying and unable to give a detailed story. He states his father is at work knows that he is here. He denies any alcohol or illicit substances today. Home Medications Medication Instructions Recorded Confirmed Type acetazolamide 250 mg tablet 250 mg PO QAM 04/10/19 03/07/21 History latanoprost 0.005 % eye drops 1 drp OPB HS 04/10/19 03/07/21 History loteprednol etabonate 0.5 % eye 1 drp OPL QPM 04/10/19 03/07/21 History gel drops (Lotemax) timolol maleate 0.5 % eye drops 1 drp OPB BID 04/10/19 03/07/21 History aripiprazole 20 mg tablet 20 mg PO DAILY 08/28/20 03/07/21 History prazosin 2 mg capsule 2 mg PO QPM 08/28/20 03/07/21 History Allergies Allergy/AdvReac Type Severity Reaction Status Date / Time latex Allergy Unknown Skin Verified 08/28/20 10:52 irritation Past Med/Surg History Medical History CMT (Duijrnt-Dsmje-Cxebu disease) Depression Depression with suicidal ideation Glaucoma Mood disorder Tobacco abuse disorder Surgical History History of ankle surgery both ankles when pt was a child History of hip surgery Transplanted cornea Family History Denies family history of Ovarian cancer Prostate cancer Myocardial infarction Breast cancer Colorectal cancer Social History Smoking Status: Never smoker Tobacco Type: Smokeless Tobacco (Dip or Chew) Second Hand Exposure: No; Hx Alcohol Use: No Hx Substance Use: No Preferred Language: Macedonian Communication Ability: Effective Lung Gun Operator Required: No Beliefs That Will Affect Care: None marital status: engaged Current Living Situation: Alone current occupational status: disabled How many Children do You have: 0 Feels Safe at Home: No Childhood Exposure to Second-Hand Smoke: No caffeine: Yes during the past year weight has: remained stable Dental Care, Regularly: No Physical Activity Frequency: Does not Exercise Seatbelt Use: always Sunscreen Use: Yes Assistive Devices: Glasses Review of Systems See HPI for pertinent positives & negatives. and A total of 10 systems reviewed and were otherwise negative Physical Exam Vital Signs Vital Signs - 24 hr 03/07/21 10:26 Temperature 36.2 C L Temperature Source Temporal Artery Scan Pulse Rate 105 H Pulse Rhythm Regular Pulse Strength Normal Respiratory Rate 18 Respiratory Effort / Characteristics Non-Labored Spontaneous Respiratory Depth Normal Respiratory Pattern Regular Blood Pressure 123/77 Blood Pressure Mean 92 Blood Pressure Position Sitting Pulse Oximetry 97 Oxygen Delivery Method Room Air Sepsis Recent Fever Within 48 Hours No Sepsis New/Unexplained Change in Mental Status No Sepsis Action Taken by Nursing No Action Required Vital signs reviewed. General: Well-appearing 30 yo male, anxious appearing and crying HEENT: No scleral icterus, PERRLA, neck supple. Atraumatic. Cardiovascular: Regular rate and rhythm, no extra sounds. Pulmonary: Clear to auscultation bilaterally, normal work of breathing. Abdomen: Soft, nontender, nondistended, positive bowel sounds. Musculoskeletal: Atraumatic, no peripheral edema. Neurologic: Patient awake alert and oriented x 3 Psych: Positive suicidal ideation without plan, negative homicidal ideation. Skin: Warm, dry, no rash Course Administered Medications Acetazolamide (Acetazolamide 250 Mg Tab) 250 mg PO QAM [facility] Stop: 04/07/21 08:59 Last Admin: 03/09/21 08:33 Dose: 250 mg Documented by: [id number] Admin: 03/08/21 07:21 Dose: 250 mg Documented by: [id number] Aripiprazole (Aripiprazole 10 Mg Tab) 20 mg PO DAILY [facility] Stop: 04/07/21 08:59 Last Admin: 03/09/21 08:33 Dose: 20 mg Documented by: [id number] Admin: 03/08/21 07:21 Dose: 20 mg Documented by: [id number] Latanoprost (Latanoprost 0.005% Op Soln 2.5 Ml Btl) 1 drops OPB HS [facility] Stop: 04/06/21 20:59 Last Admin: 03/08/21 20:20 Dose: 1 drops Documented by: [id number] Admin: 03/07/21 20:20 Dose: 1 drops Documented by: [id number] Non-Formulary Medication (Non-Formulary Patient's Own Med) 1 ea OPL QPM [facility] Stop: 04/06/21 20:59 Last Admin: 03/08/21 20:20 Dose: 1 drops Documented by: [id number] Admin: 03/07/21 20:19 Dose: 1 drops Documented by: [id number] Prazosin HCl (Prazosin Hcl 1 Mg Cap) 2 mg PO QPM [facility] Stop: 04/06/21 20:59 Last Admin: 03/08/21 20:19 Dose: 2 mg Documented by: [id number] Admin: 03/07/21 20:24 Dose: 2 mg Documented by: [id number] Timolol Maleate (Timolol Maleate 0.5% Op Soln 5 Ml Btl) 1 drops OPB BID [facility] Stop: 04/06/21 20:59 Last Admin: 03/09/21 08:33 Dose: 1 drops Documented by: [id number] Admin: 03/08/21 20:20 Dose: 1 drops Documented by: [id number] Admin: 03/08/21 07:21 Dose: 1 drops Documented by: [id number] Admin: 03/07/21 20:19 Dose: 1 drops Documented by: [id number] Discontinued Medications Lorazepam (Lorazepam 1 Mg Tab) 1 mg SL NOW STA Stop: 03/07/21 11:31 Last Admin: 03/07/21 11:43 Dose: 1 mg Documented by: [id number] Medical Decision Making Differential Diagnosis Mood disorder, infection, hypoglycemia, electrolyte abnormalities, cardiac sources, intracerebral event, toxicologic, trauma, neurologic, as well as other pathologies. Medical Records Attestation: I reviewed the patient's medical records. Home Medications Current Medication List: was personally reviewed by me Laboratory Data Attestation: I reviewed the patient's lab results. Result diagrams: 03/07/21 10:48 03/07/21 10:48 Lab Results 03/07/21 03/07/21 03/07/21 Range/Units 10:25 10:25 10:48 WBC 6.97 (4.8-10.8) K/uL RBC 4.60 L (4.7-6.1) M/uL Hgb 14.6 (14.0-18.0) g/dL Hct 42.3 (42-52) % MCV 92.0 (80-100) fL MCH 31.7 (25-34) pg MCHC 34.5 (32-36) g/dL RDW Std Deviation 43.1 (36.4-46.3) fL RDW Coeff of Delmer 12.8 (11.5-14.5) % Plt Count 248 (130-400) K/uL MPV 9.5 (7.4-10.4) fL Immature Gran % (Auto) 0.1 % Neut % (Auto) 72.1 % Lymph % (Auto) 20.8 % [place] % (Auto) 6.5 % Eos % (Auto) 0.4 % Baso % (Auto) 0.1 % Neut # (Auto) 5.02 (1.4-6.5) K/uL Lymph # (Auto) 1.45 (1.2-3.4) K/uL [place] # (Auto) 0.45 (0.11-0.59) K/uL Eos # (Auto) 0.03 (0-0.5) K/uL Baso # (Auto) 0.01 (0-0.2) K/uL Immature Gran # (Auto) 0.01 (0.00-0.02) K/uL Sodium (136-145) mmol/L Potassium (3.5-5.1) mmol/L Chloride (98-107) mmol/L Carbon Dioxide (21-32) mmol/L Anion Gap (3-11) BUN (7-18) mg/dl Creatinine (0.6-1.4) mg/dl Est Cr Clr Drug Dosing ml/min Est GFR ( Amer) ml/min Est GFR (Non-Af Amer) ml/min BUN/Creatinine Ratio (10-20) Glucose (70-99) mg/dl Calcium (8.5-10.1) mg/dl Total Bilirubin (0.2-1) mg/dl AST (15-37) U/L ALT (12-78) U/L Alkaline Phosphatase (45-117) U/L Total Protein (6.4-8.2) gm/dl Albumin (3.4-5.0) gm/dl Globulin (2.5-4.0) gm/dl Albumin/Globulin Ratio (0.9-2) TSH (0.300-4.500) uIu/ml Urine Color Yellow Urine Appearance Turbid A (Clear) Urine pH 7.0 (4.5-7.5) Ur Specific [place] 1.017 (1.000-1.030) Urine Protein Negative (Negative) Urine Glucose (UA) Negative (Negative) Urine Ketones Trace H (Negative) Urine Blood Negative (Negative) Urine Nitrite Negative (Negative) Urine Bilirubin Negative (Negative) Urine Urobilinogen Positive H (Negative) Ur Leukocyte Esterase Negative (Negative) Urine WBC (Auto) 1-5 (0-5) /hpf Urine RBC (Auto) 0-4 (0-4) /hpf U Hyaline Cast (Auto) 1-5 (0-5) /lpf U Epithel Cells (Auto) 5-10 H (0-5) /lpf Urine Bacteria (Auto) Negative (Negative) Salicylates (2.8-20) mg/dl Urine Opiates Screen Neg (Neg) Ur Methadone, Qual Neg (Neg) Acetaminophen (10-30) ug/ml Urine Barbiturates Neg (Neg) Ur Phencyclidine (PCP) Neg (Neg) U Amphetamin/Meth Scrn Neg (Neg) MDMA (Ecstasy) Screen Neg (Neg) U Benzodiazepines Scrn Neg (Neg) Ur Cocaine Metabolite Neg (Neg) U Marijuana (THC) Screen Neg (Neg) Ethyl Alcohol mg/dL (0-3) mg/dl COVID-19 Eval Order SARS-CoV-2 (PCR) (Negative) 03/07/21 03/07/21 03/07/21 Range/Units 10:48 10:48 10:48 WBC (4.8-10.8) K/uL RBC (4.7-6.1) M/uL Hgb (14.0-18.0) g/dL Hct (42-52) % MCV (80-100) fL MCH (25-34) pg MCHC (32-36) g/dL RDW Std Deviation (36.4-46.3) fL RDW Coeff of Delmer (11.5-14.5) % Plt Count (130-400) K/uL MPV (7.4-10.4) fL Immature Gran % (Auto) % Neut % (Auto) % Lymph % (Auto) % [place] % (Auto) % Eos % (Auto) % Baso % (Auto) % Neut # (Auto) (1.4-6.5) K/uL Lymph # (Auto) (1.2-3.4) K/uL [place] # (Auto) (0.11-0.59) K/uL Eos # (Auto) (0-0.5) K/uL Baso # (Auto) (0-0.2) K/uL Immature Gran # (Auto) (0.00-0.02) K/uL Sodium 141 (136-145) mmol/L Potassium 3.7 (3.5-5.1) mmol/L Chloride 116 H (98-107) mmol/L Carbon Dioxide 19 L (21-32) mmol/L Anion Gap 6.0 (3-11) BUN 10 (7-18) mg/dl Creatinine 0.88 (0.6-1.4) mg/dl Est Cr Clr Drug Dosing 135.7 ml/min Est GFR ( Amer) 133.6 ml/min Est GFR (Non-Af Amer) 115.3 ml/min BUN/Creatinine Ratio 10.8 (10-20) Glucose 100 H (70-99) mg/dl Calcium 8.9 (8.5-10.1) mg/dl Total Bilirubin 1.5 H (0.2-1) mg/dl AST 14 L (15-37) U/L ALT 29 (12-78) U/L Alkaline Phosphatase 73 (45-117) U/L Total Protein 7.2 (6.4-8.2) gm/dl Albumin 4.0 (3.4-5.0) gm/dl Globulin 3.2 (2.5-4.0) gm/dl Albumin/Globulin Ratio 1.3 (0.9-2) TSH 0.989 (0.300-4.500) uIu/ml Urine Color Urine Appearance (Clear) Urine pH (4.5-7.5) Ur Specific [place] (1.000-1.030) Urine Protein (Negative) Urine Glucose (UA) (Negative) Urine Ketones (Negative) Urine Blood (Negative) Urine Nitrite (Negative) Urine Bilirubin (Negative) Urine Urobilinogen (Negative) Ur Leukocyte Esterase (Negative) Urine WBC (Auto) (0-5) /hpf Urine RBC (Auto) (0-4) /hpf U Hyaline Cast (Auto) (0-5) /lpf U Epithel Cells (Auto) (0-5) /lpf Urine Bacteria (Auto) (Negative) Salicylates < 1.7 L (2.8-20) mg/dl Urine Opiates Screen (Neg) Ur Methadone, Qual (Neg) Acetaminophen < 2 L (10-30) ug/ml Urine Barbiturates (Neg) Ur Phencyclidine (PCP) (Neg) U Amphetamin/Meth Scrn (Neg) MDMA (Ecstasy) Screen (Neg) U Benzodiazepines Scrn (Neg) Ur Cocaine Metabolite (Neg) U Marijuana (THC) Screen (Neg) Ethyl Alcohol mg/dL < 3.0 (0-3) mg/dl COVID-19 Eval Order SARS-CoV-2 (PCR) (Negative) 03/07/21 03/07/21 Range/Units 11:25 11:25 WBC (4.8-10.8) K/uL RBC (4.7-6.1) M/uL Hgb (14.0-18.0) g/dL Hct (42-52) % MCV (80-100) fL MCH (25-34) pg MCHC (32-36) g/dL RDW Std Deviation (36.4-46.3) fL RDW Coeff of Delmer (11.5-14.5) % Plt Count (130-400) K/uL MPV (7.4-10.4) fL Immature Gran % (Auto) % Neut % (Auto) % Lymph % (Auto) % [place] % (Auto) % Eos % (Auto) % Baso % (Auto) % Neut # (Auto) (1.4-6.5) K/uL Lymph # (Auto) (1.2-3.4) K/uL [place] # (Auto) (0.11-0.59) K/uL Eos # (Auto) (0-0.5) K/uL Baso # (Auto) (0-0.2) K/uL Immature Gran # (Auto) (0.00-0.02) K/uL Sodium (136-145) mmol/L Potassium (3.5-5.1) mmol/L Chloride (98-107) mmol/L Carbon Dioxide (21-32) mmol/L Anion Gap (3-11) BUN (7-18) mg/dl Creatinine (0.6-1.4) mg/dl Est Cr Clr Drug Dosing ml/min Est GFR ( Amer) ml/min Est GFR (Non-Af Amer) ml/min BUN/Creatinine Ratio (10-20) Glucose (70-99) mg/dl Calcium (8.5-10.1) mg/dl Total Bilirubin (0.2-1) mg/dl AST (15-37) U/L ALT (12-78) U/L Alkaline Phosphatase (45-117) U/L Total Protein (6.4-8.2) gm/dl Albumin (3.4-5.0) gm/dl Globulin (2.5-4.0) gm/dl Albumin/Globulin Ratio (0.9-2) TSH (0.300-4.500) uIu/ml Urine Color Urine Appearance (Clear) Urine pH (4.5-7.5) Ur Specific [place] (1.000-1.030) Urine Protein (Negative) Urine Glucose (UA) (Negative) Urine Ketones (Negative) Urine Blood (Negative) Urine Nitrite (Negative) Urine Bilirubin (Negative) Urine Urobilinogen (Negative) Ur Leukocyte Esterase (Negative) Urine WBC (Auto) (0-5) /hpf Urine RBC (Auto) (0-4) /hpf U Hyaline Cast (Auto) (0-5) /lpf U Epithel Cells (Auto) (0-5) /lpf Urine Bacteria (Auto) (Negative) Salicylates (2.8-20) mg/dl Urine Opiates Screen (Neg) Ur Methadone, Qual (Neg) Acetaminophen (10-30) ug/ml Urine Barbiturates (Neg) Ur Phencyclidine (PCP) (Neg) U Amphetamin/Meth Scrn (Neg) MDMA (Ecstasy) Screen (Neg) U Benzodiazepines Scrn (Neg) Ur Cocaine Metabolite (Neg) U Marijuana (THC) Screen (Neg) Ethyl Alcohol mg/dL (0-3) mg/dl COVID-19 Eval Order Covid19 at [facility] SARS-CoV-2 (PCR) NEGATIVE (Negative) MDM Narrative This patient was evaluated and appeared to be in no significant distress. Patient was medically cleared and evaluated by mental health client program manager. Patient is requesting to come in for mental health treatment stating he is suicidal. He was referred to [facility] for inpatient mental health treatment. Patient was accepted on a voluntary basis. Impression & Plan Suicidal ideation Discharge Plan Visit Data Chief Complaint: Mental Health Evaluation Stated Complaint: FEELING SUICIDAL ED Provider: Mira Ray Discharge Problem: Suicidal ideation Patient Disposition: Admitted As Inpatient Discharge Instructions Interventions: ED Discharge Assessment Last Done: 03/07/21 15:44
[2021-03-07] MEDS ORDERED: ACETAMINOPHEN 325 MG TAB PO PRN (14:23)
[2021-03-07] MEDS ORDERED: SODIUM CHLORIDE 0.65% NA SOLN 45 ML (OCEAN) PRN (14:23)
[2021-03-07] MEDS ORDERED: BISMUTH SUBSALICYLATE LIQD 236 ML PO PRN (14:23)
[2021-03-07] MEDS ORDERED: ALUMINUM/MAGNESIUM SUSP 30 ML UDC PO PRN (14:23)
[2021-03-07] MEDS ORDERED: hydrOXYzine HCl 25 MG TAB PO PRN ×2 (14:23)
[2021-03-07] MEDS ORDERED: MAGNESIUM HYDROXIDE SUSP 30 ML UDC PO PRN (14:23)
[2021-03-07] MEDS: TIMOLOL MALEATE 0.5% OP SOLN 5 ML BTL OPB SCH (20:19)
[2021-03-07] MEDS: NON-FORMULARY PATIENT'S OWN MED OPL SCH (20:19)
[2021-03-07] MEDS: LATANOPROST 0.005% OP SOLN 2.5 ML BTL OPB SCH (20:20)
[2021-03-07] MEDS: PRAZOSIN HCL 1 MG CAP PO SCH (20:24)
[2021-03-08] MEDS: ARIPiprazole 10 MG TAB PO SCH (07:21)
[2021-03-08] MEDS: acetaZOLAMIDE 250 MG TAB PO SCH (07:21)
[2021-03-08] MEDS: TIMOLOL MALEATE 0.5% OP SOLN 5 ML BTL OPB SCH ×2 (07:21→20:20)
--- NOTE | 2021-03-08 10:59 | History & Physical ---
Date of Service March 08, 2021 Impression / Recommendations Impression 30 yo male with long hx of mood swings (irritability to depression), stable on Abilify with good community supports, overwhelmed by perceived rejection by girlfriend resulting in acute SI. He is considered high risk given hx of attempt and limited coping skills due to hx learning disabilites. (1) Bipolar disorder: 03/08/21--The patient was admitted to the [facility] on q15 min checks (behavioral with suicide precautions) for safety. The patient will participate in group, recreational, and milieu therapies and will be offered additional individual and family sessions as clinically appropriate. Risks/benefits/alternatives were reviewed re: antipsychotics for mood and/or psychosis. Discussion included but was not limited to metabolic side effects, risks of TD and suicidal thoughts. 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 Fasting glucose and lipid panel ordered for baseline monitoring. Inventory Assets Strengths: consistent with outpatient services, volunteerism Needs: Will need family meeting with girlfriend. coping skills Risk Factors Assessment Male: Yes : Yes Do You Have Access To A Gun?: No (reports hunts with a cross bow) Health Problems: Yes Mental Health Diagnoses: Yes Substance Use Disorders: No Previous Attempt: Yes Previous Psychiatric Hospitalization: Yes Protective Factors Assessment Employed: No (Pt on disability) Stable Relationships: Yes Supportive Family: No Good Rapport with Provider: Yes Psychiatric History Identifying Data EDOUARD ROBLES is a 30-year-old M who currently lives in [place], has a history of bipolar disorder/suicide attempt, and was admitted on 03/07/21 15:40 on a 201 voluntary commitment for SI. Chief Complaint "She denied cheating on me but I couldn't take it". History of Present Illness Edouard reports acute onset of suicidal ideation yesterday am when he found pictures of his fiance with another man on Facebook. He assumed she was cheating and reached out but she denied but he was not reassured. He became overwhelmed with suicidal ideation but denies having a specific plan. It should be noted that he was admitted in the past for a Wellbutrin OD. He has a history of limited coping skills related to learning disabilities/level of cognitive functioning. He denies vegetative symptoms of depression leading up to this and has since spoken with his girlfriend but nothing is resolved. He states in general he has been meeting regularly with his employment law specialist, therapist via telehealth, and taking medications as prescribed under the direction of Dr. Olivera. He is active as a volunteer at the local [employer] and peers there are a good support. He is tearful this am and appears quite tired/sad as "I just want to go home". He does feel he needs help in continuing to process and safety plan the events of yesterday. He denies medication related side effects or movement disorders. He cannot remember any periods of elevated or irritable mood for several years, mainly recurrent depression off of Abilify. Denies auditory or visual hallucinations. Past Psychiatric History Previous Psych History: received care at [facility] via Dr. Casas approx 22 01 while residing at [facility] and aged out to [facility] services and [employer] [facility] at one point. Current Psychiatric Diagnosis: Bipolar Disorder Outpatient Services: [facility]--therapy (Bernie), med management (Dr. Olivera), and employment law specialist. No current CM. Previous Psych Admissions: 2011 (Wellbutrin OD, 302), 2016 X2 [facility], 2019 Do You Have Access To A Gun?: No (reports hunts with a cross bow) History of Previous Suicide Attempt: Yes (2010) Past Medication Trials: Wellbutrin, Abilify, Prozac Allergies Allergy/AdvReac Type Severity Reaction Status Date / Time latex Allergy Unknown Skin Verified 08/28/20 10:52 irritation Home Medications Medication Instructions Recorded Confirmed Type acetazolamide 250 mg tablet 250 mg PO QAM 04/10/19 03/07/21 History latanoprost 0.005 % eye drops 1 drp OPB HS 04/10/19 03/07/21 History loteprednol etabonate 0.5 % eye 1 drp OPL QPM 04/10/19 03/07/21 History gel drops (Lotemax) timolol maleate 0.5 % eye drops 1 drp OPB BID 04/10/19 03/07/21 History aripiprazole 20 mg tablet 20 mg PO DAILY 08/28/20 03/07/21 History prazosin 2 mg capsule 2 mg PO QPM 08/28/20 03/07/21 History Family History Family History of: Doesn't Know Alcohol History Hx of Alcohol Use Over the Past 12 Months: Yes AUDIT Total Score: 1 Smoking Use Have You Smoked or Used Tobacco Products in the Last 30 Days: Yes tobacco type: smokeless tobacco Smoking Status: Never smoker Substance History Hx of Prescription Med Misuse Over the Past 12 Months: No Hx of Over the Counter Med Misuse Over the Past 12 Months: No Hx of Inhalent Misuse Over the Past 12 Months: No Hx of Organic Substance Use Over the Past 12 Months: No Hx of Illegal Substances/Street Drug Use Over Past 12 Months: No Problems as a Result of Past Substance Use: None Identified Personal History Living Arrangements: Apartment Childhood: in placements due to developmental issues and neurologic condition Highest Grade Completed: High School Graduate (special ed) Employment Status: Disabled Marital Status: Single Number Of Children: 0 Beliefs That Will Affect Care: None Current Legal Problems: No Hx Traumatic Life Events: Yes (abandonment) Patient History Medical History CMT (Kzroetc-Mxteg-Eynrr disease) Depression Depression with suicidal ideation Glaucoma Mood disorder Tobacco abuse disorder Surgical History History of ankle surgery both ankles when pt was a child History of hip surgery Transplanted cornea Family History Denies family history of Ovarian cancer Prostate cancer Myocardial infarction Breast cancer Colorectal cancer Social History Smoking Status: Never smoker Tobacco Type: Smokeless Tobacco (Dip or Chew) Second Hand Exposure: No; Hx Alcohol Use: No Hx Substance Use: No Preferred Language: Cuban Communication Ability: Effective Laboratory Chemist Required: No Beliefs That Will Affect Care: None marital status: engaged Current Living Situation: Alone current occupational status: disabled How many Children do You have: 0 Feels Safe at Home: No Childhood Exposure to Second-Hand Smoke: No caffeine: Yes during the past year weight has: remained stable Dental Care, Regularly: No Physical Activity Frequency: Does not Exercise Seatbelt Use: always Sunscreen Use: Yes Assistive Devices: Glasses Review of Systems Review of Systems: All systems reviewed & are unremarkable except as noted in HPI & below Physical Exam Psychiatric: Orientation: alert and oriented x 3 Apperance: appropriately dressed and appropriately groomed Eye Contact: good eye contact Motor Behavior: no abnormal motor movements Speech: normal rate/rhythm/volume of speech Affect: + depressed affect and + tearful affect Mood: + depressed mood Thought Process: + concrete thought process Thought Content: reality based without delusions Suicidal Thoughts: denies suicidal thoughts Homicidal Thoughts: denies homicidal thoughts Hallucinations: no auditory hallucinations and no visual hallucinations Cognition: attention grossly intact and language grossly intact Estimated Intelligence: consistent with education level Insight: + limited insight Judgement: + limited judgement Vital Signs (Past 24 Hours): Last Vital Signs Temp 36.6 C 03/08/21 06:00 Pulse 88 03/08/21 06:34 Resp 16 03/08/21 06:00 BP 101/64 03/08/21 06:34 Pulse Ox 96 03/08/21 06:00 Exam Statement: A physical exam was performed in the ED by Dr. Ray for the purposes of medical clearance. I accept that physical as correct and adequate for the purposes of the inpatient physical exam. Results & Data ([facility]) Laboratory Results Laboratory Results - last 24 hr 03/07/21 03/07/21 03/07/21 10:25 10:25 10:48 WBC 6.97 RBC 4.60 L Hgb 14.6 Hct 42.3 MCV 92.0 MCH 31.7 MCHC 34.5 RDW Std Deviation 43.1 RDW Coeff of [place] 12.8 Plt Count 248 MPV 9.5 Immature Gran % (Auto) 0.1 Neut % (Auto) 72.1 Lymph % (Auto) 20.8 Milam % (Auto) 6.5 Eos % (Auto) 0.4 Baso % (Auto) 0.1 Neut # (Auto) 5.02 Lymph # (Auto) 1.45 Milam # (Auto) 0.45 Eos # (Auto) 0.03 Baso # (Auto) 0.01 Immature Gran # (Auto) 0.01 Sodium Potassium Chloride Carbon Dioxide Anion Gap BUN Creatinine Est Cr Clr Drug Dosing Est GFR ( Amer) Est GFR (Non-Af Amer) BUN/Creatinine Ratio Glucose Calcium Total Bilirubin AST ALT Alkaline Phosphatase Total Protein Albumin Globulin Albumin/Globulin Ratio TSH Urine Color Yellow Urine Appearance Turbid A Urine pH 7.0 Ur Specific [place] 1.017 Urine Protein Negative Urine Glucose (UA) Negative Urine Ketones Trace H Urine Blood Negative Urine Nitrite Negative Urine Bilirubin Negative Urine Urobilinogen Positive H Ur Leukocyte Esterase Negative Urine WBC (Auto) 1-5 Urine RBC (Auto) 0-4 U Hyaline Cast (Auto) 1-5 U Epithel Cells (Auto) 5-10 H Urine Bacteria (Auto) Negative Salicylates Urine Opiates Screen Neg Ur Methadone, Qual Neg Acetaminophen Urine Barbiturates Neg Ur Phencyclidine (PCP) Neg U Amphetamin/Meth Scrn Neg MDMA (Ecstasy) Screen Neg U Benzodiazepines Scrn Neg Ur Cocaine Metabolite Neg U Marijuana (THC) Screen Neg Ethyl Alcohol mg/dL COVID-19 Eval Order SARS-CoV-2 (PCR) 03/07/21 03/07/21 03/07/21 10:48 10:48 10:48 WBC RBC Hgb Hct MCV MCH MCHC RDW Std Deviation RDW Coeff of [place] Plt Count MPV Immature Gran % (Auto) Neut % (Auto) Lymph % (Auto) Milam % (Auto) Eos % (Auto) Baso % (Auto) Neut # (Auto) Lymph # (Auto) Mil[place] # (Auto) Eos # (Auto) Baso # (Auto) Immature Gran # (Auto) Sodium 141 Potassium 3.7 Chloride 116 H Carbon Dioxide 19 L Anion Gap 6.0 BUN 10 Creatinine 0.88 Est Cr Clr Drug Dosing 135.7 Est GFR ( Amer) 133.6 Est GFR (Non-Af Amer) 115.3 BUN/Creatinine Ratio 10.8 Glucose 100 H Calcium 8.9 Total Bilirubin 1.5 H AST 14 L ALT 29 Alkaline Phosphatase 73 Total Protein 7.2 Albumin 4.0 Globulin 3.2 Albumin/Globulin Ratio 1.3 TSH 0.989 Urine Color Urine Appearance Urine pH Ur Specific [place] Urine Protein Urine Glucose (UA) Urine Ketones Urine Blood Urine Nitrite Urine Bilirubin Urine Urobilinogen Ur Leukocyte Esterase Urine WBC (Auto) Urine RBC (Auto) U Hyaline Cast (Auto) U Epithel Cells (Auto) Urine Bacteria (Auto) Salicylates < 1.7 L Urine Opiates Screen Ur Methadone, Qual Acetaminophen < 2 L Urine Barbiturates Ur Phencyclidine (PCP) U Amphetamin/Meth Scrn MDMA (Ecstasy) Screen U Benzodiazepines Scrn Ur Cocaine Metabolite U Marijuana (THC) Screen Ethyl Alcohol mg/dL < 3.0 COVID-19 Eval Order SARS-CoV-2 (PCR) 03/07/21 03/07/21 11:25 11:25 WBC RBC Hgb Hct MCV MCH MCHC RDW Std Deviation RDW Coeff of [place]mer Plt Count MPV Immature Gran % (Auto) Neut % (Auto) Lymph % (Auto) Milam % (Auto) Eos % (Auto) Baso % (Auto) Neut # (Auto) Lymph # (Auto) Milam # (Auto) Eos # (Auto) Baso # (Auto) Immature Gran # (Auto) Sodium Potassium Chloride Carbon Dioxide Anion Gap BUN Creatinine Est Cr Clr Drug Dosing Est GFR ( Amer) Est GFR (Non-Af Amer) BUN/Creatinine Ratio Glucose Calcium Total Bilirubin AST ALT Alkaline Phosphatase Total Protein Albumin Globulin Albumin/Globulin Ratio TSH Urine Color Urine Appearance Urine pH Ur Specific [place] Urine Protein Urine Glucose (UA) Urine Ketones Urine Blood Urine Nitrite Urine Bilirubin Urine Urobilinogen Ur Leukocyte Esterase Urine WBC (Auto) Urine RBC (Auto) U Hyaline Cast (Auto) U Epithel Cells (Auto) Urine Bacteria (Auto) Salicylates Urine Opiates Screen Ur Methadone, Qual Acetaminophen Urine Barbiturates Ur Phencyclidine (PCP) U Amphetamin/Meth Scrn MDMA (Ecstasy) Screen U Benzodiazepines Scrn Ur Cocaine Metabolite U Marijuana (THC) Screen Ethyl Alcohol mg/dL COVID-19 Eval Order Covid19 at [facility] SARS-CoV-2 (PCR) NEGATIVE Current Inpatient Medications Current Inpatient Medications: Current Inpatient Medications Acetaminophen (Acetaminophen 325 Mg Tab) 650 mg PO Q4H PRN PRN Reason: Headache or Minor Fever Stop: 04/06/21 14:22 Acetazolamide (Acetazolamide 250 Mg Tab) 250 mg PO QAM MADELINE Stop: 04/07/21 08:59 Last Admin: 03/08/21 07:21 Dose: 250 mg Documented by: Al Hydrox/Mg Hydrox/Simethicone (Aluminum/Magnesium Susp 30 Ml Udc) 30 ml PO Q4H PRN PRN Reason: GI Upset Stop: 04/06/21 14:22 Aripiprazole (Aripiprazole 10 Mg Tab) 20 mg PO DAILY MADELINE Stop: 04/07/21 08:59 Last Admin: 03/08/21 07:21 Dose: 20 mg Documented by: Bismuth Subsalicylate (Bismuth Subsalicylate Liqd 236 Ml) 15 ml PO PRN PRN PRN Reason: Loose Stool Stop: 04/06/21 14:22 Hydroxyzine HCl (Hydroxyzine Hcl 25 Mg Tab) 50 mg PO HSZ PRN PRN Reason: Insomnia Stop: 04/06/21 14:22 Hydroxyzine HCl (Hydroxyzine Hcl 25 Mg Tab) 25 mg PO Q4H PRN PRN Reason: Anxiety Stop: 04/06/21 14:22 Latanoprost (Latanoprost 0.005% Op Soln 2.5 Ml Btl) 1 drops OPB HS MADELINE Stop: 04/06/21 20:59 Last Admin: 03/07/21 20:20 Dose: 1 drops Documented by: Magnesium Hydroxide (Magnesium Hydroxide Susp 30 Ml Udc) 30 ml PO DAILY PRN PRN Reason: Constipation Stop: 04/06/21 14:22 Non-Formulary Medication (Non-Formulary Patient's Own Med) 1 ea OPL QPM MADELINE Stop: 04/06/21 20:59 Last Admin: 03/07/21 20:19 Dose: 1 drops Documented by: Prazosin HCl (Prazosin Hcl 1 Mg Cap) 2 mg PO QPM MADELINE Stop: 04/06/21 20:59 Last Admin: 03/07/21 20:24 Dose: 2 mg Documented by: Sodium Chloride (Sodium Chloride 0.65% Na Soln 45 Ml ([place])) 1 - 2 sprays NA PRN PRN PRN Reason: Nasal Dryness/Congestion Stop: 04/06/21 14:22 Timolol Maleate (Timolol Maleate 0.5% Op Soln 5 Ml Btl) 1 drops OPB BID MADELINE Stop: 04/06/21 20:59 Last Admin: 03/08/21 07:21 Dose: 1 drops Documented by:
[2021-03-08] MEDS: PRAZOSIN HCL 1 MG CAP PO SCH (20:19)
[2021-03-08] MEDS: NON-FORMULARY PATIENT'S OWN MED OPL SCH (20:20)
[2021-03-08] MEDS: LATANOPROST 0.005% OP SOLN 2.5 ML BTL OPB SCH (20:20)
[2021-03-09] MEDS: ARIPiprazole 10 MG TAB PO SCH (08:33)
[2021-03-09] MEDS: TIMOLOL MALEATE 0.5% OP SOLN 5 ML BTL OPB SCH ×2 (08:33→20:34)
[2021-03-09] MEDS: acetaZOLAMIDE 250 MG TAB PO SCH (08:33)
[2021-03-09 09:02] LABS: Glucose Fasting 100 mg/dl (70-99)
[2021-03-09 09:08] LABS: Chol HDL Ratio 4; Cholesterol 150 mg/dl (0-200); HDL Cholesterol 43 mg/dl; LDL Cholesterol Calculated 91 mg/dl; Triglycerides 78 mg/dl (0-150); VLDL Cholesterol 16 mg/dl
--- NOTE | 2021-03-09 16:08 | Psychiatric Progress Note ---
Date of Service March 09, 2021 Impression / Recommendations Impression 30 yo male with long hx of mood swings (irritability to depression), stable on Abilify with good community supports, overwhelmed by perceived rejection by girlfriend resulting in acute SI. He is considered high risk given hx of attempt and limited coping skills due to hx learning disabilites. (1) Bipolar disorder: 03/08/21--The patient was [facility] to the [facility] on q15 min checks (behavioral with suicide precautions) for safety. The patient will participate in group, recreational, and milieu therapies and will be offered additional individual and family sessions as clinically appropriate. Risks/benefits/alternatives were reviewed re: antipsychotics for mood and/or psychosis. Discussion included but was not limited to metabolic side effects, risks of TD and suicidal thoughts. 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 Fasting glucose and lipid panel ordered for baseline monitoring. 03/09/2021abs reviewed, within normal limits. Patient continues to do well on the unit and denies any further suicidal ideation. Compliant with medications. Will likely start discharge planning as soon as tomorrow. Inventory Assets Strengths: consistent with outpatient services, volunteerism Needs: Will need family meeting with girlfriend. coping skills Risk Factors Assessment Male: Yes : Yes Do You Have Access To A Gun?: No (reports hunts with a cross bow) Health Problems: Yes Mental Health Diagnoses: Yes Substance Use Disorders: No Previous Attempt: Yes Previous Psychiatric Hospitalization: Yes Protective Factors Assessment Employed: No (Pt on disability) Stable Relationships: Yes Supportive Family: No Good Rapport with Provider: Yes Interval History Chief Complaint "I'm better". Review of Systems Sleep Information Total Hours of Sleep: 7 Meal Information Percent Meal Consumed - Breakfast: 100 Percent Meal Consumed - Lunch: 100 Percent Meal Consumed - Dinner: 25 Subjective Subjective Patient seen, chart reviewed and case discussed with treatment team, nursing and social work. Patient reports a good night of sleep and strong appetite. No side effects reported or observed. Regarding mood, patient reports some improvement which they attribute to the medications as well as the therapy they have received on the unit. Patient is reporting resolution of his symptoms and is denying any further suicidal ideation. He states he was upset at the moment when he came in, but no longer feels this way. he is requesting to be discharged as soon as possible. I spent 30 minutes with the patient, 50% of which was dedicated to counselling and coordination of care. Physical Exam Psychiatric Orientation: alert and oriented x 3 Apperance: appropriately dressed and appropriately groomed Eye Contact: good eye contact Motor Behavior: no abnormal motor movements Speech: normal rate/rhythm/volume of speech Affect: + depressed affect and + tearful affect Mood: + depressed mood Thought Process: + concrete thought process Thought Content: reality based without delusions Suicidal Thoughts: denies suicidal thoughts Homicidal Thoughts: denies homicidal thoughts Hallucinations: no auditory hallucinations and no visual hallucinations Cognition: attention grossly intact and language grossly intact Estimated Intelligence: consistent with education level Insight: + limited insight Judgement: + limited judgement Vital Signs (Past 24 Hours) Last Vital Signs Temp 36.5 C 03/09/21 06:40 Pulse 81 03/09/21 06:40 Resp 18 03/09/21 06:40 BP 87/56 L 03/09/21 06:40 Pulse Ox 96 03/08/21 06:00 Results & Data ([facility]) Laboratory Results Laboratory Results - last 24 hr 03/09/21 08:34 Fasting Glucose 100 H Triglycerides 78 Cholesterol 150 LDL Cholesterol, Calc 91 VLDL Cholesterol, Calc 16 HDL Cholesterol 43 Cholesterol/HDL Ratio 4 Current Inpatient Medications Current Inpatient Medications: Current Inpatient Medications Acetaminophen (Acetaminophen 325 Mg Tab) 650 mg PO Q4H PRN PRN Reason: Headache or Minor Fever Stop: 04/06/21 14:22 Acetazolamide (Acetazolamide 250 Mg Tab) 250 mg PO QAM MADELINE Stop: 04/07/21 08:59 Last Admin: 03/09/21 08:33 Dose: 250 mg Documented by: Al Hydrox/Mg Hydrox/Simethicone (Aluminum/Magnesium Susp 30 Ml Udc) 30 ml PO Q4H PRN PRN Reason: GI Upset Stop: 04/06/21 14:22 Aripiprazole (Aripiprazole 10 Mg Tab) 20 mg PO DAILY MADELINE Stop: 04/07/21 08:59 Last Admin: 03/09/21 08:33 Dose: 20 mg Documented by: Bismuth Subsalicylate (Bismuth Subsalicylate Liqd 236 Ml) 15 ml PO PRN PRN PRN Reason: Loose Stool Stop: 04/06/21 14:22 Hydroxyzine HCl (Hydroxyzine Hcl 25 Mg Tab) 50 mg PO HSZ PRN PRN Reason: Insomnia Stop: 04/06/21 14:22 Hydroxyzine HCl (Hydroxyzine Hcl 25 Mg Tab) 25 mg PO Q4H PRN PRN Reason: Anxiety Stop: 04/06/21 14:22 Latanoprost (Latanoprost 0.005% Op Soln 2.5 Ml Btl) 1 drops OPB HS MADELINE Stop: 04/06/21 20:59 Last Admin: 03/08/21 20:20 Dose: 1 drops Documented by: Magnesium Hydroxide (Magnesium Hydroxide Susp 30 Ml Udc) 30 ml PO DAILY PRN PRN Reason: Constipation Stop: 04/06/21 14:22 Non-Formulary Medication (Non-Formulary Patient's Own Med) 1 ea OPL QPM MADELINE Stop: 04/06/21 20:59 Last Admin: 03/08/21 20:20 Dose: 1 drops Documented by: Prazosin HCl (Prazosin Hcl 1 Mg Cap) 2 mg PO QPM MADELINE Stop: 04/06/21 20:59 Last Admin: 03/08/21 20:19 Dose: 2 mg Documented by: Sodium Chloride (Sodium Chloride 0.65% Na Soln 45 Ml ([place])) 1 - 2 sprays NA PRN PRN PRN Reason: Nasal Dryness/Congestion Stop: 04/06/21 14:22 Timolol Maleate (Timolol Maleate 0.5% Op Soln 5 Ml Btl) 1 drops OPB BID MADELINE Stop: 04/06/21 20:59 Last Admin: 03/09/21 08:33 Dose: 1 drops Documented by: Mental Health & Subst Abuse Tx Psychiatrist Name of Psychiatrist: Anum Olivera Psychiatrist's Date of Appointment with Psychiatrist: 03/19/21 Time of Appointment with Psychiatrist: 1:00 p.m. Psychiatric Appointment Comment: In person - [address] [place] [address] Therapist Name of Therapist: Anum Gibbs Therapist's Date of Therapist Appointment: 03/21/21 Time of Therapist Appointment: 1:00 p.m. Therapy Appointment Comment: Telehealth Inside Plant Supervisor Name of Inside Plant Supervisor: . Post Discharge Appointments Primary Care Physician Name Of Family Doctor: [facility] - [facility] Time of Appointment with PCP: Follow up as needed Provider Appointment Comment: [address] [facility], [address], [place] Buckle Strap Drum Operator Name of Buckle Strap Drum Operator: Anum Freeman Phone Number of Buckle Strap Drum Operator: Date of Appointment with Buckle Strap Drum Operator: 03/12/21 Time of Appointment with Buckle Strap Drum Operator: 8:30 a.m.; 03/14/21 at 8:30 a.m. Buckle Strap Drum Operator Appointment Comment: [address] [place] [address], [place] [id number] Contact Information Discharge Discharge Address: [address] [place] [address], [facility], [place] [id number]
[2021-03-09] MEDS: PRAZOSIN HCL 1 MG CAP PO SCH (20:31)
[2021-03-09] MEDS: NON-FORMULARY PATIENT'S OWN MED OPL SCH (20:33)
[2021-03-09] MEDS: LATANOPROST 0.005% OP SOLN 2.5 ML BTL OPB SCH (20:34)
[2021-03-10] MEDS: TIMOLOL MALEATE 0.5% OP SOLN 5 ML BTL OPB SCH ×2 (07:57→21:01)
[2021-03-10] MEDS: ARIPiprazole 10 MG TAB PO SCH (07:57)
[2021-03-10] MEDS: acetaZOLAMIDE 250 MG TAB PO SCH (07:57)
--- NOTE | 2021-03-10 13:36 | Psychiatric Progress Note ---
Date of Service March 10, 2021 Impression / Recommendations Impression 30 yo male with long hx of mood swings (irritability to depression), stable on Abilify with good community supports, overwhelmed by perceived rejection by girlfriend resulting in acute SI. He is considered high risk given hx of attempt and limited coping skills due to hx learning disabilites. (1) Bipolar disorder: 03/08/21--The patient was admitted to the [facility]) on q15 min checks (behavioral with suicide precautions) for safety. The patient will participate in group, recreational, and milieu therapies and will be offered additional individual and family sessions as clinically appropriate. Risks/benefits/alternatives were reviewed re: antipsychotics for mood and/or psychosis. Discussion included but was not limited to metabolic side effects, risks of TD and suicidal thoughts. 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 Fasting glucose and lipid panel ordered for baseline monitoring. 03/09/2021abs reviewed, within normal limits. Patient continues to do well on the unit and denies any further suicidal ideation. Compliant with medications. Will likely start discharge planning as soon as tomorrow. 03/10/2021atient continues to benefit from group and therapy. Wavers well with regards to discharge. Will push back discharge to the coming days. Inventory Assets Strengths: consistent with outpatient services, volunteerism Needs: Will need family meeting with girlfriend. coping skills Risk Factors Assessment Male: Yes : Yes Do You Have Access To A Gun?: No (reports hunts with a cross bow) Health Problems: Yes Mental Health Diagnoses: Yes Substance Use Disorders: No Previous Attempt: Yes Previous Psychiatric Hospitalization: Yes Protective Factors Assessment Employed: No (Pt on disability) Stable Relationships: Yes Supportive Family: No Good Rapport with Provider: Yes Interval History Chief Complaint "I think I should stay I am still not feeling right". Review of Systems Sleep Information Total Hours of Sleep: 7.5 Meal Information Percent Meal Consumed - Breakfast: 100 Percent Meal Consumed - Lunch: 100 Percent Meal Consumed - Dinner: 85 Subjective Subjective Patient seen, chart reviewed and case discussed with treatment team, nursing and social work. Patient reports a good night of sleep and strong appetite. No side effects reported or observed. Regarding mood, patient reports some improvement which they attribute to the medications as well as the therapy they have received on the unit. Yesterday patient was reporting resolution of symptoms and requesting to be discharged. Later on in the day he did state that he had gotten worse news from his girlfriend and he was having a hard time coping with it. Today there is a long conversation about relationships and self-esteem and how the patient views himself. It was decided that patient could still benefit from therapy and group services here. Patient decided to stay an extra day or so in order to process some of these complicated feelings regarding his relationship. I spent 30 minutes with the patient, 50% of which was dedicated to counselling and coordination of care. Physical Exam Psychiatric Orientation: alert and oriented x 3 Apperance: appropriately dressed and appropriately groomed Eye Contact: good eye contact Motor Behavior: no abnormal motor movements Speech: normal rate/rhythm/volume of speech Affect: + depressed affect and + tearful affect Mood: + depressed mood Thought Process: + concrete thought process Thought Content: reality based without delusions Suicidal Thoughts: denies suicidal thoughts Homicidal Thoughts: denies homicidal thoughts Hallucinations: no auditory hallucinations and no visual hallucinations Cognition: attention grossly intact and language grossly intact Estimated Intelligence: consistent with education level Insight: + limited insight Judgement: + limited judgement Vital Signs (Past 24 Hours) Last Vital Signs Temp 36.5 C 03/10/21 07:07 Pulse 99 H 03/10/21 07:07 Resp 16 03/10/21 07:07 BP 126/77 03/10/21 07:07 Pulse Ox 96 03/08/21 06:00 Results & Data ([facility]) Current Inpatient Medications Current Inpatient Medications: Current Inpatient Medications Acetaminophen (Acetaminophen 325 Mg Tab) 650 mg PO Q4H PRN PRN Reason: Headache or Minor Fever Stop: 04/06/21 14:22 Acetazolamide (Acetazolamide 250 Mg Tab) 250 mg PO QAM MADELINE Stop: 04/07/21 08:59 Last Admin: 03/10/21 07:57 Dose: 250 mg Documented by: Al Hydrox/Mg Hydrox/Simethicone (Aluminum/Magnesium Susp 30 Ml Udc) 30 ml PO Q4H PRN PRN Reason: GI Upset Stop: 04/06/21 14:22 Aripiprazole (Aripiprazole 10 Mg Tab) 20 mg PO DAILY MADELINE Stop: 04/07/21 08:59 Last Admin: 03/10/21 07:57 Dose: 20 mg Documented by: Bismuth Subsalicylate (Bismuth Subsalicylate Liqd 236 Ml) 15 ml PO PRN PRN PRN Reason: Loose Stool Stop: 04/06/21 14:22 Hydroxyzine HCl (Hydroxyzine Hcl 25 Mg Tab) 50 mg PO HSZ PRN PRN Reason: Insomnia Stop: 04/06/21 14:22 Hydroxyzine HCl (Hydroxyzine Hcl 25 Mg Tab) 25 mg PO Q4H PRN PRN Reason: Anxiety Stop: 04/06/21 14:22 Latanoprost (Latanoprost 0.005% Op Soln 2.5 Ml Btl) 1 drops OPB HS MADELINE Stop: 04/06/21 20:59 Last Admin: 03/09/21 20:34 Dose: 1 drops Documented by: Magnesium Hydroxide (Magnesium Hydroxide Susp 30 Ml Udc) 30 ml PO DAILY PRN PRN Reason: Constipation Stop: 04/06/21 14:22 Non-Formulary Medication (Non-Formulary Patient's Own Med) 1 ea OPL QPM MADELINE Stop: 04/06/21 20:59 Last Admin: 03/09/21 20:33 Dose: 1 drops Documented by: Prazosin HCl (Prazosin Hcl 1 Mg Cap) 2 mg PO QPM MADELINE Stop: 04/06/21 20:59 Last Admin: 03/09/21 20:31 Dose: 2 mg Documented by: Sodium Chloride (Sodium Chloride 0.65% Na Soln 45 Ml ([place])) 1 - 2 sprays NA PRN PRN PRN Reason: Nasal Dryness/Congestion Stop: 04/06/21 14:22 Timolol Maleate (Timolol Maleate 0.5% Op Soln 5 Ml Btl) 1 drops OPB BID MADELINE Stop: 04/06/21 20:59 Last Admin: 03/10/21 07:57 Dose: 1 drops Documented by: Mental Health & Subst Abuse Tx Psychiatrist Name of Psychiatrist: Anum Olivera Psychiatrist's Date of Appointment with Psychiatrist: 03/19/21 Time of Appointment with Psychiatrist: 1:00 p.m. Psychiatric Appointment Comment: In person - [address] [place] [id number] Therapist Name of Therapist: Anum Gibbs Therapist's Date of Therapist Appointment: 03/21/21 Time of Therapist Appointment: 1:00 p.m. Therapy Appointment Comment: Telehealth Broadcast Director Operations Name of Broadcast Director Operations: . Post Discharge Appointments Primary Care Physician Name Of Family Doctor: [facility] - [facility] Time of Appointment with PCP: Follow up as needed Provider Appointment Comment: [facility], [address], [place] [employer]vas Goods Fabricator Name of Canvas Goods Fabricator: Anum Freeman Phone Number of Canvas Goods Fabricator: Date of Appointment with Canvas Goods Fabricator: 03/12/21 Time of Appointment with Canvas Goods Fabricator: 8:30 a.m.; 03/14/21 at 8:30 a.m. Canvas Goods Fabricator Appointment Comment: [address] [address] Contact Information Discharge Discharge Address: [address] [place], [place] [address] [address]
[2021-03-10] MEDS: PRAZOSIN HCL 1 MG CAP PO SCH (20:57)
[2021-03-10] MEDS: LATANOPROST 0.005% OP SOLN 2.5 ML BTL OPB SCH (21:20)
[2021-03-10] MEDS: NON-FORMULARY PATIENT'S OWN MED OPL SCH (21:33)
[2021-03-11] MEDS: acetaZOLAMIDE 250 MG TAB PO SCH (08:15)
[2021-03-11] MEDS: TIMOLOL MALEATE 0.5% OP SOLN 5 ML BTL OPB SCH (08:15)
[2021-03-11] MEDS: ARIPiprazole 10 MG TAB PO SCH (08:15)
--- NOTE | 2021-03-11 10:04 | Discharge Summary ---
Date of Service March 11, 2021 History of Present Illness Solo reports acute onset of suicidal ideation yesterday am when he found pictures of his fiance with another man on Facebook. He assumed she was cheating and reached out but she denied but he was not reassured. He became overwhelmed with suicidal ideation but denies having a specific plan. It should be noted that he was admitted in the past for a Wellbutrin OD. He has a history of limited coping skills related to learning disabilities/level of cognitive functioning. He denies vegetative symptoms of depression leading up to this and has since spoken with his girlfriend but nothing is resolved. He states in general he has been meeting regularly with his emergency medicine specialist, therapist via telehealth, and taking medications as prescribed under the direction of Dr. Olivera. He is active as a volunteer at the local [employer] and peers there are a good support. He is tearful this am and appears quite tired/sad as "I just want to go home". He does feel he needs help in continuing to process and safety plan the events of yesterday. He denies medication related side effects or movement disorders. He cannot remember any periods of elevated or irritable mood for several years, mainly recurrent depression off of Abilify. Denies auditory or visual hallucinations. Physical Exam Psychiatric Orientation: alert and oriented x 3 Apperance: appropriately dressed and appropriately groomed Eye Contact: good eye contact Motor Behavior: no abnormal motor movements Speech: normal rate/rhythm/volume of speech Affect: + depressed affect and + tearful affect Mood: + depressed mood Thought Process: + concrete thought process Thought Content: reality based without delusions Suicidal Thoughts: denies suicidal thoughts Homicidal Thoughts: denies homicidal thoughts Hallucinations: no auditory hallucinations and no visual hallucinations Cognition: attention grossly intact and language grossly intact Estimated Intelligence: consistent with education level Insight: + limited insight Judgement: + limited judgement Vital Signs (Past 24 Hours) Last Vital Signs Temp 36.5 C 03/11/21 09:57 Pulse 88 03/11/21 09:57 Resp 16 03/11/21 09:57 BP 103/67 03/11/21 09:57 Pulse Ox 96 03/11/21 09:57 Principal Diagnosis Mood disorder Psychiatric Data See daily stay summary. In short, safety was maintained, and the patient was cooperative with care. No medication changes were made as patient reported stability and absence of Suicidal thoughts with the help of therapy groups. A family session was held and safety plan was completed prior to discharge. Day of Discharge Assessment Today the patient voices readiness for discharge. They note improvement in mood and deny thoughts to harm self or others. Thoughts remain organized and they are improved from admission. There is no evidence of psychosis. They agree to take medications as prescribed and keep follow-up appointments. They are stable for discharge to outpatient level of care. Transition of Care Transition Of Care Record: was reviewed with the patient Advance Directives Advance Directives Information Provided: Yes Advance Directives: No Mental Health Advance Directive: No Advance Directives on File: No Living Will: No Power of Sales Floor Manager: No Advance Directives Reason:: Declines as Mental Health Visit. Risk Factors Assessment Male: Yes : Yes Do You Have Access To A Gun?: No (reports hunts with a cross bow) Health Problems: Yes Mental Health Diagnoses: Yes Substance Use Disorders: No Previous Attempt: Yes Previous Psychiatric Hospitalization: Yes Protective Factors Assessment Employed: No (Pt on disability) Stable Relationships: Yes Supportive Family: No Good Rapport with Provider: Yes Discharge Data Lab Results 03/07/21 03/07/21 03/07/21 10:25 10:25 10:48 WBC 6.97 RBC 4.60 L Hgb 14.6 Hct 42.3 MCV 92.0 MCH 31.7 MCHC 34.5 RDW Std Deviation 43.1 RDW Coeff of [place]mer 12.8 Plt Count 248 MPV 9.5 Immature Gran % (Auto) 0.1 Neut % (Auto) 72.1 Lymph % (Auto) 20.8 [place] % (Auto) 6.5 Eos % (Auto) 0.4 Baso % (Auto) 0.1 Neut # (Auto) 5.02 Lymph # (Auto) 1.45 [place] # (Auto) 0.45 Eos # (Auto) 0.03 Baso # (Auto) 0.01 Immature Gran # (Auto) 0.01 Sodium Potassium Chloride Carbon Dioxide Anion Gap BUN Creatinine Est Cr Clr Drug Dosing Est GFR ( Amer) Est GFR (Non-Af Amer) BUN/Creatinine Ratio Glucose Fasting Glucose Calcium Total Bilirubin AST ALT Alkaline Phosphatase Total Protein Albumin Globulin Albumin/Globulin Ratio Triglycerides Cholesterol LDL Cholesterol, Calc VLDL Cholesterol, Calc HDL Cholesterol Cholesterol/HDL Ratio TSH Urine Color Yellow Urine Appearance Turbid A Urine pH 7.0 Ur Specific [place] 1.017 Urine Protein Negative Urine Glucose (UA) Negative Urine Ketones Trace H Urine Blood Negative Urine Nitrite Negative Urine Bilirubin Negative Urine Urobilinogen Positive H Ur Leukocyte Esterase Negative Urine WBC (Auto) 1-5 Urine RBC (Auto) 0-4 U Hyaline Cast (Auto) 1-5 U Epithel Cells (Auto) 5-10 H Urine Bacteria (Auto) Negative Salicylates Urine Opiates Screen Neg Ur Methadone, Qual Neg Acetaminophen Urine Barbiturates Neg Ur Phencyclidine (PCP) Neg U Amphetamin/Meth Scrn Neg MDMA (Ecstasy) Screen Neg U Benzodiazepines Scrn Neg Ur Cocaine Metabolite Neg U Marijuana (THC) Screen Neg Ethyl Alcohol mg/dL COVID-19 Eval Order SARS-CoV-2 (PCR) 03/07/21 03/07/21 03/07/21 10:48 10:48 10:48 WBC RBC Hgb Hct MCV MCH MCHC RDW Std Deviation RDW Coeff of [place] Plt Count MPV Immature Gran % (Auto) Neut % (Auto) Lymph % (Auto) [place] % (Auto) Eos % (Auto) Baso % (Auto) Neut # (Auto) Lymph # (Auto) [place] # (Auto) Eos # (Auto) Baso # (Auto) Immature Gran # (Auto) Sodium 141 Potassium 3.7 Chloride 116 H Carbon Dioxide 19 L Anion Gap 6.0 BUN 10 Creatinine 0.88 Est Cr Clr Drug Dosing 135.7 Est GFR ( Amer) 133.6 Est GFR (Non-Af Amer) 115.3 BUN/Creatinine Ratio 10.8 Glucose 100 H Fasting Glucose Calcium 8.9 Total Bilirubin 1.5 H AST 14 L ALT 29 Alkaline Phosphatase 73 Total Protein 7.2 Albumin 4.0 Globulin 3.2 Albumin/Globulin Ratio 1.3 Triglycerides Cholesterol LDL Cholesterol, Calc VLDL Cholesterol, Calc HDL Cholesterol Cholesterol/HDL Ratio TSH 0.989 Urine Color Urine Appearance Urine pH Ur Specific [place] Urine Protein Urine Glucose (UA) Urine Ketones Urine Blood Urine Nitrite Urine Bilirubin Urine Urobilinogen Ur Leukocyte Esterase Urine WBC (Auto) Urine RBC (Auto) U Hyaline Cast (Auto) U Epithel Cells (Auto) Urine Bacteria (Auto) Salicylates < 1.7 L Urine Opiates Screen Ur Methadone, Qual Acetaminophen < 2 L Urine Barbiturates Ur Phencyclidine (PCP) U Amphetamin/Meth Scrn MDMA (Ecstasy) Screen U Benzodiazepines Scrn Ur Cocaine Metabolite U Marijuana (THC) Screen Ethyl Alcohol mg/dL < 3.0 COVID-19 Eval Order SARS-CoV-2 (PCR) 03/07/21 03/07/21 03/09/21 11:25 11:25 08:34 WBC RBC Hgb Hct MCV MCH MCHC RDW Std Deviation RDW Coeff of [place]mer Plt Count MPV Immature Gran % (Auto) Neut % (Auto) Lymph % (Auto) [place] % (Auto) Eos % (Auto) Baso % (Auto) Neut # (Auto) Lymph # (Auto) [place] # (Auto) Eos # (Auto) Baso # (Auto) Immature Gran # (Auto) Sodium Potassium Chloride Carbon Dioxide Anion Gap BUN Creatinine Est Cr Clr Drug Dosing Est GFR ( Amer) Est GFR (Non-Af Amer) BUN/Creatinine Ratio Glucose Fasting Glucose 100 H Calcium Total Bilirubin AST ALT Alkaline Phosphatase Total Protein Albumin Globulin Albumin/Globulin Ratio Triglycerides 78 Cholesterol 150 LDL Cholesterol, Calc 91 VLDL Cholesterol, Calc 16 HDL Cholesterol 43 Cholesterol/HDL Ratio 4 TSH Urine Color Urine Appearance Urine pH Ur Specific [place] Urine Protein Urine Glucose (UA) Urine Ketones Urine Blood Urine Nitrite Urine Bilirubin Urine Urobilinogen Ur Leukocyte Esterase Urine WBC (Auto) Urine RBC (Auto) U Hyaline Cast (Auto) U Epithel Cells (Auto) Urine Bacteria (Auto) Salicylates Urine Opiates Screen Ur Methadone, Qual Acetaminophen Urine Barbiturates Ur Phencyclidine (PCP) U Amphetamin/Meth Scrn MDMA (Ecstasy) Screen U Benzodiazepines Scrn Ur Cocaine Metabolite U Marijuana (THC) Screen Ethyl Alcohol mg/dL COVID-19 Eval Order Covid19 at [facility] SARS-CoV-2 (PCR) NEGATIVE Hospital Course (1) Bipolar disorder: 03/08/21--The patient was admitted to the [facility] ([facility] inpatient mental health unit) on q15 min checks (behavioral with suicide precautions) for safety. The patient will participate in group, recreational, and milieu therapies and will be offered additional individual and family sessions as clinically appropri ate. Risks/benefits/alternatives were reviewed re: antipsychotics for mood and/or psychosis. Discussion included but was not limited to metabolic side effects, risks of TD and suicidal thoughts. 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 Fasting glucose and lipid panel ordered for baseline monitoring. 1labs reviewed, within normal limits. Patient continues to do well on the unit and denies any further suicidal ideation. Compliant with medications. Will likely start discharge planning as soon as tomorrow. 03/10/2021atient continues to benefit from group and therapy. Wavers well with regards to discharge. Will push back discharge to the coming days. Mental Health & Subst Abuse Tx Psychiatrist Name of Psychiatrist: Anum Olivera Psychiatrist's Date of Appointment with Psychiatrist: 03/19/21 Time of Appointment with Psychiatrist: 1:00 p.m. Psychiatric Appointment Comment: In person - [address] [place] [id number] Therapist Name of Therapist: Anum Gibbs Therapist's Date of Therapist Appointment: 03/21/21 Time of Therapist Appointment: 1:00 p.m. Therapy Appointment Comment: Telehealth Robotics Application Engineer Name of Robotics Application Engineer: . Post Discharge Appointments Primary Care Physician Name Of Family Doctor: [facility] - [facility] Time of Appointment with PCP: Follow up as needed Provider Appointment Comment: [facility], [address] Facing Baster Name of Facing Baster: Anum Freeman Phone Number of Facing Baster: Date of Appointment with Facing Baster: 03/12/21 Time of Appointment with Facing Baster: 8:30 a.m.; 03/14/21 at 8:30 a.m. Facing Baster Appointment Comment: [address] [place] [address] Contact Information Discharge Discharge Address: [address] [place], [place] [address] [address] Discharge Plan Discharge Items Patient Disposition: Home - Self-Care Reason For Visit: FEELING SUICIDAL Discharge Diagnosis: Mood Disorder Activity: Resume your previous activity Non-emergency contact: Primary Care Provider, Psychiatrist and Therapist Call non-emergency contact if: you have any medication questions Follow-up/Referrals: Ed Everett CRNP [Primary Care Provider] - Diet: Regular Addtl Attending Provider Instructions: SPECIAL CARE INSTRUCTIONS: 1. Follow through with your scheduled aftercare appointments. If unable to keep an appointment, please call to reschedule. 2. Take your medication only as prescribed. Medication should not be changed or stopped without the approval of your doctor. In the event of worsening symptoms or concerns about side effects, contact your doctor immediately. 3. Utilize new healthy coping skills, anger management skills, and stress management skills learned during your hospitalization. Journal feelings and process them with a support person. Identify stressors or situations that may result in relapse, deterioration or inappropriate behaviors and develop a plan to deal with those issues. 4. If your coping skills are ineffective and you are in crisis, contact your outpatient providers for direction. If unable to reach your providers, please call the [facility] CRISIS LINE AT , go to the [facility] walk-in center at [address] [place] [address] [address], [place], or go to the closest Emergency Room. 5. Avoid alcohol and un-prescribed drugs. 6. You have been provided with the Mental Health Advance Directives Pamphlet for your review. 7. Your condition is stable for discharge to outpatient level of care, but recovery is an ongoing process. Ifthoughts to harm yourself or others return, follow the safety plan developed during your stay. Planning for a safe return home includes securing weapons. Our treatment team recommends weaponsbe removed from the home until your outpatient provider reassesses your progress. In rare cases where the items themselvescannot be removed, guns and ammunitionshould be secured separatelyand keys stored by a reliable personoutside of the home. If you were admitted on an involuntary commitment, the police or other legal authorities may be involved in this process. AFTERCARE APPOINTMENTS: * Please call your insurance company prior to your scheduled appointment to confirm your aftercare providers are covered. Take your insurance information to your appointments. WHO TO CALL AND WHEN: Medical Emergencies: For questions or emergencies related to your hospital stay, please contact the Inpatient Behavioral Health Unit at [phone]. A supervisor rough end is on-call 26/01 for the Behavioral Health Unit for emergencies At any time you feel your situation is an emergency, you may also call 911 immediately. Pending Studies at Discharge: No Stand-Alone Forms: My [facility] Medications and DC Order Prescriptions: Continued aripiprazole 20 mg tablet 20 mg PO DAILY RF: 0 prazosin 2 mg capsule 2 mg PO QPM RF: 0 latanoprost 0.005 % drops 1 drp OPB HS RF: 0 acetazolamide 250 mg tablet 250 mg PO QAM RF: 0 timolol maleate 0.5 % drops 1 drp OPB BID RF: 0 loteprednol etabonate [Lotemax] 0.5 % drops,gel 1 drp OPL QPM RF: 0 Discharge Orders: Discharge Order (Routine); Ordered 03/11/21 Ordered By: Dustin Fracnois Admission Data Admit Date/Time: 03/07/21 15:40 Attending Provider: Dustin Francois Admit Provider: Molly Casas Primary Care Provider: Ed Everett Other Interventions: Discharge Summary Assessment (RN) Last Done: 03/11/21 09:57 PSY Interdisciplinary Discharge Planning Last Done: 03/08/21 15:06 Coding Level of Care Code 55212 D/C day mgmt > 30 min Diagnoses Bipolar disorder F31.9 Time Spent (min) 45
== END 2021-03-11 10:55 | disposition home or self-care (01) | DRG 885 ==
LOC: ED 10:22 → 3S 15:40 → SUATTDRO 15:40 → 3S 15:44

== ENCOUNTER 2024-02-22 17:56 | Inpatient (IN) ==
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
[2024-02-22 18:40] LABS: Basophils # (auto) 0.03 K/uL (0.00-0.20); Basophils % (auto) 0.3 %; Eosinophils # (auto) 0.06 K/uL (0.00-0.50); Eosinophils % (auto) 0.7 %; Hematocrit (blood only) 41.5 % (42.0-52.0); Hemoglobin 13.3 g/dl (14.0-18.0); Immature Granulocytes # (auto) 0.03 K/uL (0.01-0.20); Immature Granulocytes % (auto) 0.3 %; Lymphocytes # (auto) 2.17 K/uL (1.20-3.40); Lymphocytes % (auto) 23.7 %; Mean Corpuscular Hemoglobin 26.5 pg (25.0-34.0); Mean Corpuscular Volume 82.8 fL (80.0-100.0); Mean Platelet Volume 9.9 fL (9.4-12.4); Monocytes # (auto) 0.49 K/uL (0.11-0.59); Monocytes % (auto) 5.3 %; Neutrophils # (auto) 6.38 K/uL (1.40-6.50); Neutrophils % (auto) 69.7 %; Platelet Count 325 K/uL (130-400); RDW Coefficient of Variation 13.3 % (11.5-14.5); RDW Standard Deviation 39.8 fL (36.4-46.3); Red Blood Count 5.01 M/uL (4.70-6.10); White Blood Count 9.16 K/ul (4.8-10.8)
[2024-02-22 18:53] LABS: Amorphous Sediment Urine Present (None Prsent); Appearance Urine Turbid (Clear); Bacteria Urine Automated None Seen (None Seen); Bilirubin Urine Negative (Negative); Blood Urine Negative (Negative); Color Urine Yellow; Epithelial Cell Urine Auto 0-2 /hpf (0-2); Glucose Urine UA Negative (Negative); Ketones Urine Negative (Negative); Leukocyte Esterase Urine 1+ (Negative); Mucus Urine Present (None Prsent); Nitrite Urine Negative (Negative); Protein Urine Trace (Negative); RBC Urine Automated 0-2 /hpf (0-2); Specific Gravity Urine 1.025 (1.000-1.030); Urobilinogen Urine Negative (Negative); pH Urine 7.5 (4.5-7.5)
[2024-02-22 18:55] LABS: Acetaminophen < 3 ug/ml (10-30); Albumin Globulin Ratio 1.8 (0.9-2); Albumin Level 4.5 gm/dl (3.4-5.0); BUN Creatinine Ratio 12.5 (10-20); Bilirubin,Total 0.7 mg/dl (0.2-1.0); Calcium 9.6 mg/dl (8.6-10.3); Est GFR (African American) 130.8 ml/min; Est GFR (Non-African American) 112.9 ml/min; Globulin 2.5 gm/dl (2.5-4.0); Potassium 3.9 mmol/L (3.5-5.1); Salicylate < 3.0 mg/dl (3.0-30)
[2024-02-22 19:10] LABS: Thyroid Stimulating Hormone 2.247 uIu/ml (0.300-4.500)
[2024-02-22] MEDS: LORazepam 1 MG TAB PO STA (19:16)
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
[2024-02-22 19:34] LABS: Amphetamines+Metham, Urine Neg (Neg); Barbiturates, Urine Neg (Neg); Benzodiazepine, Urine Neg (Neg); Cocaine, Urine Neg (Neg); Fentanyl, Urine Neg (Neg); MDMA (Ecstacy), Urine Neg (Neg); Marijuana, Urine Neg (Neg); Methadone, Urine Neg (Neg); Opiate, Urine Neg (Neg); Phencyclidine, Urine Neg (Neg)
[2024-02-22] MEDS: NICOTINE POLACRILEX 2 MG GUM MT PRN (21:35)
[2024-02-22] MEDS ORDERED: BISMUTH SUBSALICYLATE LIQD 236 ML PO PRN (22:29)
[2024-02-22] MEDS ORDERED: ALUMINUM/MAGNESIUM SUSP 30 ML UDC PO PRN (22:29)
[2024-02-22] MEDS ORDERED: ACETAMINOPHEN 325 MG TAB PO PRN (22:29)
[2024-02-22] MEDS ORDERED: MAGNESIUM HYDROXIDE SUSP 30 ML UDC PO PRN (22:29)
[2024-02-22] MEDS ORDERED: SODIUM CHLORIDE 0.65% NA SOLN 45 ML (OCEAN) PRN (22:29)
[2024-02-22] MEDS: ARTIFICIAL TEARS OPL SCH (23:11)
[2024-02-22] MEDS: LATANOPROST 0.005% OP SOLN 2.5 ML BTL OPB SCH (23:12)
[2024-02-22] MEDS: QUEtiapine FUMARATE 25 MG TABLET PO SCH (23:13)
[2024-02-23 06:25] VITALS: O2SAT 97
[2024-02-23] MEDS ORDERED: NICOTINE POLACRILEX 2 MG GUM MT PRN (07:00)
[2024-02-23] MEDS: NICOTINE POLACRILEX 2 MG GUM MT PRN (09:00)
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
[2024-02-23] MEDS: ONDANSETRON 4 MG OD TAB PO PRN (18:08)
[2024-02-23] MEDS ORDERED: LATANOPROST 0.005% OP SOLN 2.5 ML BTL OPB SCH (22:00)
[2024-02-23] MEDS ORDERED: ARTIFICIAL TEARS OPL SCH (22:00)
[2024-02-24 06:24] VITALS: RESP 16
[2024-02-24] MEDS ORDERED: CALCIUM CARBONATE 500 MG CHEWABLE TAB PO PRN (13:28)
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
[2024-02-24] MEDS: LORazepam 0.5 MG TAB PO PRN (14:26)
[2024-02-25 06:17] VITALS: BP 111/73; TEMP 96.9
[2024-02-25 10:05] VITALS: PULSE 91
== END 2024-02-25 18:00 | disposition home or self-care (01) | DRG 880 ==
LOC: ED 17:56 → 3S 21:39